=== PATIENT | female | born 1935 | race Caucasian/White ===

== ENCOUNTER → 2016-05-25 | Outpatient (CLI) | payer MEDICARE, OTHER ==
[~2016-05-25] MED LIST: /ATOR40TA PO; /PANT40TA PO; AMOX500C PO; ASPI1TAB PO; CALC600T21 PO; COLA100C PO; EVIS1TAB PO; FLON0.054; LACT20EL PO; LYRI75CA PO; MIRA3350 PO; NAPR500T PO; NEUR300C PO; OXYB10TA PO; PERC5TAB PO; PREV30CA11 PO; TYLE325T5 PO; ULTR50TA PO; VITA-115 PO; VITA-130 PO; ZOLO50TA PO; vit b
--- NOTE | 2016-05-25 17:05 | REP ---
CHEST, TWO VIEWS: Two view of the chest are performed and compared to prior study of 09/24/2013. There is no acute infiltrate or pulmonary edema. The heart is upper limits of normal in size. There is calcified tortuous aorta. The mediastinal silhouette is unchanged. Metallic clips are seen in the right upper quadrant of the abdomen. There are degenerative changes of the spine with an old compression deformity of a lower thoracic vertebral artery. IMPRESSION: No acute pulmonary disease. Signed by Gustavo Reece MD 05/26/2016 05:11 P
== END ==
LOC: M RAD 12:02
PROVIDERS: ATTEND Family Medicine
DX: I82.402 Acute embolism and thrombosis of unspecified deep veins of left lower extremity (principal)

== ENCOUNTER → 2016-12-21 | Outpatient (CLI) | payer MEDICARE, OTHER ==
[~2016-12-21] MED LIST changes: +ATOR1TAB21 PO; -CALC600T21 PO; +CALC600T60 PO; -COLA100C PO; +COLA100C5 PO; +ELIQ5TAB PO; +FLON1SPR; +FURO20TA2 PO; +LACT10SO29 PO; +OXYB5TAB10 PO; +PREV1CAP PO; -PREV30CA11 PO; +RALO1TAB PO; +SERT-138 PO; +ULTR50TA8 PO; -VITA-130 PO; +VITA1CAP40 PO; +VITA500T PO
--- NOTE | 2016-12-21 15:28 | REP ---
Chest two views HISTORY: Hypertension Comparison: 05/25/2016 The lungs are clear. The heart is upper limits of normal in size. The pulmonary vasculature is normal in appearance. There is an old compression fracture of a lower thoracic vertebral body. IMPRESSION: No acute disease. Signed by Ruperto Santana MD 12/21/2016 03:20 P
[2016-12-21 15:42] LABS: ANION GAP 6 MEQ/L (8-16); BLOOD UREA NITROGEN 12 MG/DL (7-18); CALCIUM LEVEL 8.7 MG/DL (8.8-10.2); CARBON DIOXIDE LEVEL 28 MEQ/L (21-32); CHLORIDE LEVEL 109 MEQ/L (98-107); CREATININE FOR GFR 0.84 MG/DL (0.55-1.02); GLOMERULAR FILTRATION RATE > 60.0 (>32); GLUCOSE, FASTING 93 MG/DL (83-110); POTASSIUM SERUM 4.2 MEQ/L (3.5-5.1); SODIUM LEVEL 143 MEQ/L (136-145)
--- NOTE | 2016-12-21 16:55 | ECGEPIP ---
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 Somewhat low voltages with slow precordial R-wave progression and persistent S waves in V5 and V6; body habitus versus pulmonary disease. Rule out prior septal injury. Marginal ST/T-wave abnormalities Slight reduction in voltages from 01/21/16 Electronically Signed On 12-21-2016 16:55:50 EDT by Shola Carias
== END ==
LOC: M LAB 14:45
PROVIDERS: ATTEND Ophthalmology
DX: I10 Essential (primary) hypertension (principal)

== ENCOUNTER → 2017-02-03 | Day surgery (SDC) | payer MEDICARE, OTHER ==
--- NOTE | 2017-01-31 10:31 | CR ---
DATE OF CONSULTATION: 01/03/2017 CONSULTING PHYSICIAN: Dr. Roderick Heller. REQUESTING PHYSICIAN: Dr. Remigio Mistry DO PROPOSED SURGERY: Right cataract extraction to be completed at [facility] on 02/03/2017. CHIEF COMPLAINT: Preoperative evaluation. HISTORY OF PRESENT ILLNESS: Very pleasant 81-year-old who presents today with her daughter for preoperative evaluation. Patient notes overall she has no new symptoms or issues. Chronic issues are generally stable. Patient is on roasterman anticoagulation due to history of recurrent deep venous thrombosis (DVT). She is on Eliquis as well as baby aspirin. She denies any acute chest pain, shortness of breath, any other cardiac issues. She has no history of chronic obstructive pulmonary disease (COPD) or acute respiratory concerns. No history of asthma. She denies snoring or any other symptoms of obstructive sleep apnea (MACK) and she denies having significant problems with anesthesia in the past. She has never smoked. PAST MEDICAL HISTORY: Hyperlipidemia. Chronic kidney disease stage III. Anemia. Osteoporosis. History of recurrent deep venous thrombosis on anticoagulation with Eliquis. Gastroesophageal reflux disease (GERD). Dysthymia (extended grief after her 's passing in 2014). Vitamin D deficiency. Urinary incontinence. PAST SURGICAL HISTORY: Total hysterectomy 1968. Cholecystectomy. Lumbar fusion. Hemorrhoidectomy. ALLERGIES: CODEINE causes a rash, DOXYCYCLINE causes a rash, she felt unwell on DARVOCET N. MEDICATION: - Eliquis 5 mg twice daily - calcium 600 mg three times daily - Nasonex nose spray one spray in each nostril twice daily - Lipitor 20 mg daily - Drisdol 50,000 units weekly - oxybutynin 5 mg twice a day - Lasix 20 mg daily - enteric coated aspirin 81 mg daily - lansoprazole 30 mg twice daily - raloxifene 50 mg daily - stool softener 100 mg tablet once or twice a day as needed - women's multivitamin - sertraline 150 mg daily - meclizine 25 mg every 8 hours as needed for dizziness FAMILY HISTORY: Noncontributory in a patient 81 years old. Her father had lung cancer at a young age and her mother in childbirth. SOCIAL HISTORY: Patient is a . Her Art passed in August 2014. 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 Now lives with one of her children. She has never smoked. Does not take any alcohol. REVIEW OF SYSTEMS: As per history of present illness. Otherwise ten system review is negative. PHYSICAL EXAMINATION: Vital signs: Blood pressure 130/70, height is 4 foot 11, weight is 163 pounds, body mass index (BMI) is 32.9. General: Patient appears to be in baseline health. No acute distress. Nontoxic. Alert and oriented times three. HEENT: Pupils equal, round, and reactive to light and accommodation. Extraocular movements appear intact. Tympanic membranes bilaterally as is external auditory canals are generally benign. Oral cavity, oropharynx benign. Neck is supple. No lymphadenopathy or thyromegaly. Heart: Regular rate and rhythm. S1, S2. Lungs: Clear to auscultation bilaterally. Abdomen: Soft, nontender, nondistended. Lower extremities: No clubbing, cyanosis or edema today. Neurologic exam: Nonfocal. ASSESSMENT AND PLAN: 1. Preoperative evaluation and consultation. Labs from 12/21 show normal BMP. Labs on 12/30 show appropriate cholesterol panel and normal CBC. Overall the patient appears to be optimized for surgical intervention without any major concerns. She will discuss whether she needs to come off her anticoagulation for the surgery and if she does, she will hold the Eliquis for 3 days prior. Aspirin will also be discussed in detail as well if it is necessary. If indeed it is, she does appear to be optimized and will undergo surgery. ASSESSMENT AND PLAN: 1. Patient is optimized for surgical intervention. She has no known significant cardiac issues, pulmonary issues or anesthesia issues. Patient, however, has had recurrent deep venous thrombosis and hence is on Eliquis as discussed. 2. Cataract. Patient looks forward to improved vision. 3. Hyperlipidemia. Patient has done well on present dose of atorvastatin. Will continue. 4. Osteoporosis. Patient is on Relafen. She does have significant back issues to limit her activity level. 5. Anemia resolved on recent labs. Will monitor. 6. Chronic kidney disease stage III, mild and stable, will monitor. 7. Recurrent deep venous thrombosis (DVT) - patient is on Eliquis in addition to the aspirin. Will continue to monitor. On halfway anticoagulants as noted above. We discussed this. 8. Gastroesophageal reflux disease (GERD), good results on PPI, able to wean without significant symptoms. 9. Dysthymia. Patient has extensive depression previously, now doing well on Zoloft. 10. Vitamin D deficiency. Continued on isdol. Continue to monitor. 11. Urinary incontinence, doing well on oxybutynin. She does understand the risk due to her age. ONGOING CARE: I am going to see her again as scheduled. Again if there are any questions regarding any new symptoms or if there are any concerns, I can be called at [phone].
[~2017-02-03] VITALS: Ht 149.9 cm; Wt 73.5 kg
[~2017-02-03] MED LIST changes: +ACETYLCHOLINE OPHTH SOLN 1% 2ML (MIOCHOL-E) As Ordered ONE; +BALANCED SALT IRRIGATION SOLUTION 500ML BAG (FOR OR EYE MACHINE) As Ordered ONE; +CEFUROXIME 1MG/0.1ML INTRACAMERAL INJ As Ordered ONE; +D5W/0.2% SODIUM CHLORIDE 250 ML IV ONE; +DUOVISC (0.50ML VISCOAT/0.55ML PROVISC) OPHTH KIT As Ordered ONE; +LIDOCAINE 0.75%/EPINEPHRINE 0.025% IN BSS 1ML SYR INTRACAMERAL (OR ONLY) As Ordered ONE; +MIDAZOLAM INJ 2 MG/2 ML VIAL (J2250) As Ordered ONE; +OFLOXACIN 0.3 % (OCUFLOX) OPTH SOL 5ML OD ONE; +ONDANSETRON 4MG/2ML VIAL (J2405) As Ordered ONE; +PHENYLEPHRINE 2.5% OPHTH SOL 2ML OD ONE; +POVIDONE-IODINE 5% OPHTH PREP SOL 30ML As Ordered ONE; +PROPARACAINE 0.5% OPHTH SOL 15ML OD ONE; +TROPICAMIDE 1% OPHTH SOLN 2ML OD ONE; +fentaNYL 100 MCG/2 ML INJECTION (J3010) As Ordered ONE
[2017-02-03 11:30] VITALS: BP 133/68
--- NOTE | 2017-02-03 19:38 | RO ---
DATE OF PROCEDURE: 02/03/2017 PREOPERATIVE DIAGNOSIS: Visually significant nuclear sclerotic cataract right eye. POSTOPERATIVE DIAGNOSIS: Visually significant nuclear sclerotic cataract right eye. PROCEDURE: Cataract extraction with use of phacoemulsification, and placement of intraocular lens, AU00T0 19.0D , right eye. SURGEON: Remigio Mistry DO LOADING MANAGER: ANESTHESIA: Local with monitored anesthesia care (MAC). COMPLICATIONS: None. POSTOPERATIVE CONDITION: Stable. INDICATION FOR SURGERY: Blurred vision right eye affecting patient's activities of daily living. DESCRIPTION OF PROCEDURE: The patient was seen in the preoperative area and properly identified. The correct operative eye was identified and marked. Attention was turned to that eye. The patient received topical antibiotics in the preoperative area. The patient then received topical dilating drops consisting of Tropicamide and Phenylephrine. The patient was then transferred to the operating room. The correct side was re-identified. The patient received topical anesthetics and antibiotics on the surface of the eye. The eye was prepped and draped in a sterile fashion. The upper and lower eyelids were isolated with Tegaderm tape, and the lids were held open with an adjustable speculum. Using a sideport blade, a paracentesis incision was made. Intraocular preservative-free lidocaine was then injected into the anterior chamber. Viscoelastic was then injected into the anterior chamber through the paracentesis. Using a 2.4 mm sharp-tipped keratome, the anterior chamber was entered via a temporal clear corneal incision. A continuous curvilinear capsulorrhexis was created with the aid of a 26g cystotome and utrata forceps. Hydrodissection was performed with balanced salt solution (BSS) on a blunt cannula until the nucleus was freely mobile. The crystalline lens was phacoemulsified and aspirated. Additional cohesive viscoelastic was placed into the capsular bag to deepen it. An AU00T0 19.0 lens D was placed into the capsular bag and confirmed by visualizing the continuous curvilinear capsulorrhexis. Additional irrigation and aspiration was used to remove cortical material and remaining viscoelastic. The clear corneal incision was hydrated with BSS on a blunt cannula. The lens was well positioned. The incisions were then tested for leaks and found to be negative. The eye was then palpated for appropriate pressure and adjusted accordingly with BSS. The eyelid speculum was carefully removed. A shield was placed. The patient tolerated the procedure well and was discharged to the recovery unit in a stable condition. MTDD
== END | disposition home or self-care (01) ==
LOC: M SDC 08:53
PROVIDERS: ATTEND Ophthalmology
DX: H25.11 Age-related nuclear cataract, right eye (principal); E78.5 Hyperlipidemia, unspecified; K21.9 Gastro-esophageal reflux disease without esophagitis; F41.9 Anxiety disorder, unspecified; Z79.82 Long term (current) use of aspirin; Z79.02 Long term (current) use of antithrombotics/antiplatelets; Z79.899 Other long term (current) drug therapy
CPT/HCPCS: 66984; J2250; J2405; J3010; V2632

== ENCOUNTER 2017-02-17 10:02 | Day surgery (SDC) | payer MEDICARE, OTHER ==
[~2017-02-17 10:02] MED LIST changes: -D5W/0.2% SODIUM CHLORIDE 250 ML IV ONE; +LR 500 ML IV ONE; -OFLOXACIN 0.3 % (OCUFLOX) OPTH SOL 5ML OD ONE; +OFLOXACIN 0.3 % (OCUFLOX) OPTH SOL 5ML OS ONE; -ONDANSETRON 4MG/2ML VIAL (J2405) As Ordered ONE; -PHENYLEPHRINE 2.5% OPHTH SOL 2ML OD ONE; +PHENYLEPHRINE 2.5% OPHTH SOL 2ML OS ONE; -PROPARACAINE 0.5% OPHTH SOL 15ML OD ONE; +PROPARACAINE 0.5% OPHTH SOL 15ML OS ONE; -TROPICAMIDE 1% OPHTH SOLN 2ML OD ONE; +TROPICAMIDE 1% OPHTH SOLN 2ML OS ONE
[2017-02-17 13:00] VITALS: BP 150/75
--- NOTE | 2017-02-17 15:38 | RO ---
DATE OF SURGERY: 02/17/2017 PREOPERATIVE DIAGNOSIS: Visually significant nuclear sclerotic cataract, left eye. POSTOPERATIVE DIAGNOSIS: Visually significant nuclear sclerotic cataract, left eye. PROCEDURE: Extracapsular cataract removal with insertion of intraocular lens implant, left eye, AU00T0 20.0, left eye, for near vision, SURGEON: Remigio Mistry DO SOLAR SALES MANAGER: ANESTHESIA: Local with monitored anesthesia care (MAC). COMPLICATIONS: None. POSTOPERATIVE CONDITION: Stable. INDICATION FOR SURGERY: Blurred vision, right eye, affecting patient's activities of daily living. DESCRIPTION OF PROCEDURE: The patient was seen in the preoperative area and properly identified. The correct operative eye was identified and marked. Attention was turned to that eye. The patient received topical antibiotics in the preoperative area. The patient then received topical dilating drops consisting of Tropicamide and Phenylephrine. The patient was then transferred to the operating room. The correct side was re-identified. The patient received topical anesthetics and antibiotics on the surface of the eye. The eye was prepped and draped in a sterile fashion. The upper and lower eyelids were isolated with Tegaderm tape, and the lids were held open with an adjustable speculum. Using a sideport blade, a paracentesis incision was made. Intraocular preservative-free lidocaine was then injected into the anterior chamber. Viscoelastic was then injected into the anterior chamber through the paracentesis. Using a 2.4 mm sharp-tipped keratome, the anterior chamber was entered via a temporal clear corneal incision. A continuous curvilinear capsulorrhexis was created with the aid of a 26g cystotome and Utrata forceps. Hydrodissection was performed with balanced salt solution (BSS) on a blunt cannula until the nucleus was freely mobile. The crystalline lens was phacoemulsified and aspirated. Additional cohesive viscoelastic was placed into the capsular bag to deepen it. AU00T0, 20.0 lens D was placed into the capsular bag and confirmed by visualizing the continuous curvilinear capsulorrhexis. Additional irrigation and aspiration was used to remove cortical material and remaining viscoelastic. The clear corneal incision was hydrated with BSS on a blunt cannula. The lens was well positioned. The incisions were then tested for leaks and found to be negative. The eye was then palpated for appropriate pressure and adjusted accordingly with BSS. The eyelid speculum was carefully removed. A shield was placed. The patient tolerated the procedure well and was discharged to the recovery unit in a stable condition. SUGAR
== END 2017-02-17 13:10 | disposition home or self-care (01) ==
LOC: M SDC 10:02
PROVIDERS: ATTEND Ophthalmology
DX: H25.12 Age-related nuclear cataract, left eye (principal); E78.5 Hyperlipidemia, unspecified; K21.9 Gastro-esophageal reflux disease without esophagitis; F41.9 Anxiety disorder, unspecified; Z88.8 Allergy status to other drugs, medicaments and biological substances; Z79.899 Other long term (current) drug therapy
CPT/HCPCS: 66984; J2250; J3010; V2632

== ENCOUNTER 2019-12-09 17:38 | Emergency (ER) | payer MEDICARE, OTHER ==
[~2019-12-09] VITALS: Ht 149.9 cm; Wt 71.1 kg
[~2019-12-09 17:38] MED LIST changes: -/ATOR40TA PO; -/PANT40TA PO; -ACETYLCHOLINE OPHTH SOLN 1% 2ML (MIOCHOL-E) As Ordered ONE; -ASPI1TAB PO; +ASPI81TA26 PO; -BALANCED SALT IRRIGATION SOLUTION 500ML BAG (FOR OR EYE MACHINE) As Ordered ONE; -CEFUROXIME 1MG/0.1ML INTRACAMERAL INJ As Ordered ONE; -DUOVISC (0.50ML VISCOAT/0.55ML PROVISC) OPHTH KIT As Ordered ONE; -LACT10SO29 PO; +LACT15SO PO; -LIDOCAINE 0.75%/EPINEPHRINE 0.025% IN BSS 1ML SYR INTRACAMERAL (OR ONLY) As Ordered ONE; +LIPI1TAB2 PO; -LR 500 ML IV ONE; -MIDAZOLAM INJ 2 MG/2 ML VIAL (J2250) As Ordered ONE; -OFLOXACIN 0.3 % (OCUFLOX) OPTH SOL 5ML OS ONE; -OXYB10TA PO; +OXYB10TA23 PO; -PHENYLEPHRINE 2.5% OPHTH SOL 2ML OS ONE; -POVIDONE-IODINE 5% OPHTH PREP SOL 30ML As Ordered ONE; -PROPARACAINE 0.5% OPHTH SOL 15ML OS ONE; +PROT1TAB2 PO; -TROPICAMIDE 1% OPHTH SOLN 2ML OS ONE; +VITA-243 PO; -VITA1CAP40 PO; +VITA50005 PO; -VITA500T PO; -fentaNYL 100 MCG/2 ML INJECTION (J3010) As Ordered ONE
[2019-12-09] MEDS ORDERED: VITA50005 PO (17:56)
--- NOTE | 2019-12-09 18:23 | REPVR ---
PROCEDURE INFORMATION: Exam: CT Head Without Contrast Exam date and time: 12/09/2019 5:46 PM Age: 84 years old Clinical indication: Injury or trauma; Fall; Initial encounter; Blunt trauma (contusions or hematomas); Consciousness not specified; Additional info: Head injury on eliquis TECHNIQUE: Imaging protocol: Computed tomography of the head without contrast. Radiation optimization: All CT scans at this facility use at least one of these dose optimization techniques: automated exposure control; mA and/or kV adjustment per patient size (includes targeted exams where dose is matched to clinical indication); or iterative reconstruction. COMPARISON: CT Head without contrast 01/21/2016 7:43 PM FINDINGS: Brain: There is no acute cortical infarction, intracranial hemorrhage or mass. There is a small focal low density in the left sub cortical white matter left frontal lobe which is stable in comparison to the prior study.There is mild diffuse heterogeneity of the white matter, most consistent with microangiopathy. Ventricles: Mild, stable ventriculomegaly. Bones/joints: Unremarkable. No acute fracture. Sinuses: There is no significant mucoperiosteal thickening or air-fluid levels in the paranasal sinuses. Mastoid air cells: The middle ear cavities and mastoid air cells are clear. Vasculature: Atherosclerosis. Soft tissues: Unremarkable. IMPRESSION: No acute intracranial findings. Electronically signed by: Karine Etienne On 12/09/2019 18:22:50 PM
--- NOTE | 2019-12-09 18:29 | REPVR ---
PROCEDURE INFORMATION: Exam: CT Cervical Spine Without Contrast Exam date and time: 12/09/2019 5:46 PM Age: 84 years old Clinical indication: Injury or trauma; Fall; Initial encounter; Blunt trauma; Additional info: Head injury on eliquis TECHNIQUE: Imaging protocol: Computed tomography images of the cervical spine without contrast. Radiation optimization: All CT scans at this facility use at least one of these dose optimization techniques: automated exposure control; mA and/or kV adjustment per patient size (includes targeted exams where dose is matched to clinical indication); or iterative reconstruction. COMPARISON: No relevant prior studies available. FINDINGS: Vertebrae: There is minimal anterior spondylolisthesis of C3 on C4. Disc space narrowing and endplate degeneration at seen at C4-C5, C5-C6 and C6-C7 levels. There is mild reversal the normal cervical lordosis at C5-C6. Diffuse degeneration of the uncovertebral and facet joints. C2-C3: No significant spinal canal stenosis or neural foraminal narrowing. C3-C4: No spinal canal stenosis. Mild narrowing of the left neural foramen. C4-C5: No significant spinal canal stenosis or neural foraminal narrowing. C5-C6: No significant spinal canal stenosis or neural foraminal narrowing. C6-C7: No significant spinal canal stenosis or neural foraminal narrowing. C7-T1: No significant spinal canal stenosis or neural foraminal narrowing. Soft tissues: No prevertebral soft tissue swelling. Lungs: Lung apices are unremarkable. IMPRESSION: No acute fracture or dislocation in the cervical spine. Electronically signed by: Karine Etienne On 12/09/2019 18:28:39 PM
[2019-12-09 19:12] VITALS: BP 145/89
== END 2019-12-09 19:13 | disposition home or self-care (01) ==
LOC: M ED 17:38
DX: S01.01XA Laceration without foreign body of scalp, initial encounter (principal); W01.10XA Fall on same level from slipping, tripping and stumbling with subsequent striking against unspecified object, initial encounter; Y92.099 Unspecified place in other non-institutional residence as the place of occurrence of the external cause; Y93.9 Activity, unspecified; Y99.9 Unspecified external cause status; I11.9 Hypertensive heart disease without heart failure; Z79.01 Long term (current) use of anticoagulants; Z79.82 Long term (current) use of aspirin; Z79.899 Other long term (current) drug therapy; Z88.5 Allergy status to narcotic agent; Z88.8 Allergy status to other drugs, medicaments and biological substances

== ENCOUNTER 2020-03-20 22:12 | Inpatient (IN) | payer MEDICARE, OTHER ==
[~2020-03-20] VITALS: Ht 149.9 cm; Wt 72.9 kg
[2020-03-20] MEDS ORDERED: ONDANSETRON 4MG/2ML VIAL IV ONE (23:00)
[2020-03-20] MEDS ORDERED: MORPHINE 2 MG/ML 1ML VIAL (J2270) IV PRN (23:00)
[2020-03-20 23:35] LABS: BASO % 0.3 % (0.0-1.0); EOS # 0.2 10^3/uL (0.0-0.5); EOS % 1.8 % (0.0-3.0); HEMATOCRIT 37.2 % (36.0-47.0); HEMOGLOBIN 11.7 g/dl (12.0-15.5); LYMPH # 2.9 10^3/uL (1.5-5.0); LYMPH % 28.7 % (24.0-44.0); MEAN CORPUSCULAR HEMOGLOBIN 31.7 pg (27.0-33.0); MEAN CORPUSCULAR HGB CONC 31.5 g/dl (32.0-36.5); MEAN CORPUSCULAR VOLUME 100.8 fl (80.0-96.0); MONO # 0.7 10^3/uL (0.0-0.8); MONO % 6.8 % (0.0-5.0); NEUTROPHILS # 6.4 10^3/uL (1.5-8.5); NEUTROPHILS % 62.1 % (36.0-66.0); PLATELET COUNT, AUTOMATED 173 10^3/uL (150-450); RED BLOOD COUNT 3.69 10^6/uL (4.00-5.40); WHITE BLOOD COUNT 10.2 10^3/uL (4.0-10.0)
[2020-03-20 23:47] LABS: ALBUMIN 2.9 GM/DL (3.2-5.2); ALT/SGPT 27 U/L (12-78); BILIRUBIN,DIRECT 0.2 MG/DL (0.0-0.2); BILIRUBIN,TOTAL 0.4 MG/DL (0.2-1.0); BLOOD UREA NITROGEN 13 MG/DL (7-18); CALCIUM LEVEL 8.2 MG/DL (8.8-10.2); CARBON DIOXIDE LEVEL 27 MEQ/L (21-32); CHLORIDE LEVEL 111 MEQ/L (98-107); GLOMERULAR FILTRATION RATE > 60.0 (>32); GLUCOSE, FASTING 100 MG/DL (70-100); LIPASE 61 U/L (73-393); SODIUM LEVEL 143 MEQ/L (136-145); TOTAL PROTEIN 7.9 GM/DL (6.4-8.2)
--- NOTE | 2020-03-21 00:43 | REPVR ---
PROCEDURE INFORMATION: Exam: CT Abdomen And Pelvis Without Contrast Exam date and time: 03/20/2020 11:55 PM Age: 84 years old Clinical indication: Abdominal pain; Localized; Left lower quadrant (llq); Additional info: Llq pain R/O diverticulitis TECHNIQUE: Imaging protocol: Computed tomography of the abdomen and pelvis without contrast. Radiation optimization: All CT scans at this facility use at least one of these dose optimization techniques: automated exposure control; mA and/or kV adjustment per patient size (includes targeted exams where dose is matched to clinical indication); or iterative reconstruction. COMPARISON: CT Pelvis without contrast 08/17/2013 11:05 PM FINDINGS: Lungs: Coarse bibasilar pulmonary interstitium with minimal bullous change and minimal scattered scar. Liver: Slightly nodular surface of the liver. Gallbladder and bile ducts: Status post cholecystectomy. Pancreas: Normal. No ductal dilation. Spleen: Normal. No splenomegaly. Adrenal glands: Normal. No mass. Kidneys and ureters: No renal calculi. Stomach and bowel: Surgical clips about the GE junction. Mild stool throughout much of the colon. Mildly redundant sigmoid with no significant diverticulosis and no diverticulitis. Appendix: A normal appendix is seen. Intraperitoneal space: Unremarkable. No free air. No significant fluid collection. Vasculature: There is moderate atherosclerotic calcification of the abdominal aorta with extension into the iliac arteries. Lymph nodes: Unremarkable. No enlarged lymph nodes. Urinary bladder: Upper normal filling of the urinary bladder. Reproductive: Status post hysterectomy. Bones/joints: Moderate wedge configuration of T10 and slight wedge configuration of T11 which appear to be chronic. There are degenerative changes of the lumbar spine with facet arthropathy. Soft tissues: Unremarkable. IMPRESSION: 1. There has been prior cholecystectomy and hysterectomy. 2. Prior surgery about the GE junction. 3. Suggestion of hepatic cirrhosis. 4. Otherwise negative CT abdomen/pelvis. No colonic diverticulosis or diverticulitis. Electronically signed by: Thee Tam On 03/21/2020 00:43:46 AM
[2020-03-21] MEDS ORDERED: MOM 30ML SUSPENSION UDC PO PRN (03:30)
[2020-03-21] MEDS ORDERED: MAALOX 30 ML SUSP *UDC PO PRN (03:30)
[2020-03-21] MEDS ORDERED: ACETAMINOPHEN TAB 650MG DOSE (2X325MG) PO PRN (03:30)
[2020-03-21] MEDS ORDERED: VITA50005 PO (03:48)
[2020-03-21] MEDS ORDERED: FURO20TA2 PO (03:48)
[2020-03-21] MEDS ORDERED: FLON1SPR (03:48)
[2020-03-21] MEDS ORDERED: RALO1TAB PO (03:48)
[2020-03-21] MEDS ORDERED: SERT-138 PO (03:48)
[2020-03-21 04:13] VITALS: BP 114/63
--- NOTE | 2020-03-21 05:03 | HPEPDOC ---
[facility] Medical History & Physical Date of Admission Mar 21, 2020 Date of Service: Mar 21, 2020 Primary Care Physician: Venkata Herron RPA-C Attending Physician: GARCIA ROBLEDO MD History and Physical TIME OF SERVICE: 420am CHIEF COMPLAINT: back pain HISTORY OF PRESENT ILLNESS: This 84 yr old F presented w c/o of 3 day in duration 10/30 in severity back pain that radiated to her lower abdomen. She denied falling but reports having difficulties walking because of the pain, and denies having fevers. Per she was noted to have urinary retention while in the ER. She came to the hospital today because he children insisted that she come in for evaluation. REVIEW OF SYSTEMS: negative except as listed in HPI PAST MEDICAL/ SURGICAL HISTORY: Chronic back pain / lumbar DJD w spinal stenosis / L3-L4 laminectomy w right sided fusion of L3-L5 DLP Chronic HTN Remote hx of Gout DVT on apixaban Osteopenia Vitamin D def Depression GERD Allergic rhinitis Chronic stress incontinence Chronic constipation Newly diagnosed liver cirrhosis Class 1 obesity Hx of ear surgery /hearing loss Tonsillectomy Hernia repair Partial hysterectomy Cholecystectomy D&C Skin graft surgery x 2 after sustaining heart Hemorrhoid surgery SOCIAL HISTORY: she doesn't smoke and lives alone 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 HOME MEDICATIONS: Please see below. PHYSICAL EXAMINATION: Vital Signs Date Time Temp Pulse Resp B/P (MAP) Pulse Ox O2 Delivery O2 Flow Rate FiO2 03/20/20 22:12 99.4 87 16 136/63 (87) 96 Room Air GEN: well-nourished / well developed/ NAD INTEGUMENT: not flushed/ not jaundice CVS: RRR/NMRG/ radial and dorsalis pedis pulses intact / no lower extremity edema LUNGS: lungs are clear to auscultation bilaterally on room air ABDOMEN: Contour ( obese) / soft & not tender with palpation MSK/EXTREMITIES: NCAT / she is unable to sit up with out assistance because of her back pain NEURO: CN 2-12 are grossly intact / speech is not dysarthric / both legs are weak she has difficulties holding them up against resistance PSYCH: alert and oriented to person place and time/ able to understand and follow all commands LABORATORY DATA: 03/20/20 23:10 03/20/20 23:10: Immature Granulocyte % (Auto) 0.3, Neutrophils (%) (Auto) 62.1, Lymphocytes (%) (Auto) 28.7, Monocytes (%) (Auto) 6.8H, Eosinophils (%) (Auto) 1.8, Basophils (%) (Auto) 0.3, Neutrophils # (Auto) 6.4, Lymphocytes # (Auto) 2.9, Monocytes # (Auto) 0.7, Eosinophils # (Auto) 0.2, Basophils # (Auto) 0.0, Nucleated Red Blood Cells % (auto) 0.0, Anion Gap 5L, Glomerular Filtration Rate > 60.0, Lactic Acid Level 1.3, Calcium Level 8.2L, Total Bilirubin 0.4, Direct Bilirubin 0.2, Aspartate Amino Transf (AST/SGOT) 57H, Alanine Aminotransferase (ALT/SGPT) 27, Alkaline Phosphatase 123H, Total Protein 7.9, Albumin 2.9L, Albumin/Globulin Ratio 0.6L, Lipase 61L 03/21/20 01:40: Urine Color YELLOW, Urine Appearance CLEAR, Urine pH 6.0, Urine Specific [place] 1.016, Urine Protein NEGATIVE, Urine Glucose (UA) NEGATIVE, Urine Ketones NEGATIVE, Urine Blood NEGATIVE, Urine Nitrite NEGATIVE, Urine Bilirubin NEGATIVE, Urine Urobilinogen 4.0H, Urine Leukocyte Esterase NEGATIVE, Urine WBC (Auto) 0, Urine RBC (Auto) 5H, Urine Hyaline Casts (Auto) 0, Urine Bacteria ( Auto) NEGATIVE, Urine Squamous Epithelial Cells 0, Urine Sperm (Auto) IMAGING: CT abd/pelvis "IMPRESSION: 1. There has been prior cholecystectomy and hysterectomy. 2. Prior surgery about the GE junction. 3. Suggestion of hepatic cirrhosis. 4. Otherwise negative CT abdomen/pelvis. No colonic diverticulosis or diverticulitis." ASSESSMENT: is an 84 yr old w a hx of lumbar DJD w spinal stenosis, hx of L3-L4 laminectomy w right sided fusion of L3-L5, HTN , Osteopenia, Depression & GERD who presented w c/o back pain that makes it difficult for her to walk; she will be admitted for management of back pain, pending PT eval. PLAN: 1. Acute on chronic back pain She a hx of lumbar DJD w spinal stenosis & L3-L4 laminectomy w right sided fusion of L3-L5 CT of the abdomen didn't identify any acute lumbar spine pathology Plan: admit to medical floor / start scheduled acetaminophen w Flector patches 2. Unsteady Gait Plan: PT consult 3. Newly diagnosed liver cirrhosis Suspect this is 2/2 fatty liver Plan: she can f/u with her PCP to receive Hep A & B vaccines if not already g iven 4. hx of DVT Plan: apixaban 5. Vitamin D def / Osteopenia Plan: Ca w vit D 6. DLP Plan: atorvastatin 7. Chronic HTN Plan: Lasix 8. Depression Plan:sertraline 9. GERD Plan: omeprazole 10. Chronic constipation Plan: docusate 11. Class 1 obesity complicates care Plan: f/u with PCP for DM and MACK screening DVT PROPHYLAXIS: n/a she is on a NOAC DISPOSITION: home after less than 2 midnight's stay Home Medications Scheduled Apixaban (Eliquis) 5 Mg Tab, 5 MG PO BID Ascorbic Acid (Vitamin C) 500 Mg Tab, 500 MG PO DAILY Aspirin (Aspirin EC) 81 Mg Tab, 81 MG PO DAILY Atorvastatin Calcium (Atorvastatin Calcium) 20 Mg Tab, 20 MG PO DAILY Calcium Carbonate (Calcium) 600 Mg Tab, 600 MG PO WM Docusate Sodium (Colace) 100 Mg Cap, 100 MG PO DAILY Ergocalciferol (Vitamin D2) (Vitamin D2) 50,000 Units Cap, 50,000 UNITS PO 1XWK UNSURE OF EXACT DAY BUT PATIENT STATES SHE TAKES IT IN THE MIDDLE OF THE WEEK Fluticasone Propionate (Flonase Allergy Relief) 9.9 Ml [place].susp, 1 SPRAY NA BID Furosemide (Furosemide) 20 Mg Tablet, 20 MG PO DAILY Lansoprazole (Prevacid) 30 Mg Cap, 30 MG PO BID Oxybutynin Chloride (Oxybutynin Chloride) 5 Mg Tab, 5 MG PO BID Raloxifene HCl (Raloxifene HCl) 60 Mg Tablet, 60 MG PO DAILY Sertraline HCl (Sertraline HCl) 100 Mg Tablet, 150 MG PO DAILY Allergies Coded Allergies: codeine (Verified Adverse Reaction, Unknown, itching, 12/09/19) propoxyphene (Verified Adverse Reaction, Unknown, N/V, 12/09/19) A-FIB/CHADSVASC A-FIB History Current/History of A-Fib/PAF?: No Current PO Anticoag Therapy: No LWANGA,GARCIA MD Mar 21, 2020 05:03
[2020-03-21 06:00] VITALS: BP 116/68
[2020-03-21] MEDS: ACETAMINOPHEN 650MG ER TAB (TYLENOL ARTHRITIS) PO SCH ×3 (06:14→21:33)
[2020-03-21] MEDS: ASPIRIN 81 MG ENTERIC TAB PO SCH (09:32)
[2020-03-21] MEDS: FLUTICASONE PROP 0.05% NASAL SPRAY 16 GM (FLONASE) SCH ×2 (09:32→21:34)
[2020-03-21] MEDS: DICLOFENAC EPOLAMINE 1.3 % PATCH TOP SCH ×2 (09:32→21:33)
[2020-03-21] MEDS: FUROSEMIDE 20 MG TAB PO SCH (09:33)
[2020-03-21] MEDS: OMEPRAZOLE 20 MG CAP PO SCH ×2 (09:33→21:33)
[2020-03-21] MEDS: ATORVASTATIN 20 MG TAB PO SCH (09:33)
[2020-03-21] MEDS: CALCIUM/VITAMIN D 500 MG TAB PO SCH (09:33)
[2020-03-21] MEDS: oxyBUTYnin 5 MG TAB PO SCH ×2 (09:33→21:33)
[2020-03-21] MEDS: DOCUSATE SODIUM 100 MG CAP PO SCH (09:33)
[2020-03-21] MEDS: SERTRALINE HCL 50 MG TAB PO SCH (09:33)
[2020-03-21] MEDS: APIXABAN 5 MG TAB (ELIQUIS) PO SCH ×2 (09:33→21:33)
--- NOTE | 2020-03-21 10:29 | REP ---
INDICATION: lower back pain. COMPARISON: Comparison lumbar spine radiographs are from August 09, 2014.. TECHNIQUE: Five views. FINDINGS: There are surgical clips in right upper quadrant. Vascular calcification is noted in the normal caliber aorta. Bowel gas pattern is unremarkable. Lumbar vertebral body heights are preserved. Alignment is normal. There is no evidence of such foy allow listhesis or spondylolisthesis. There is degenerative disc disease diffusely in the lumbar spine and osteoarthritic facet changes are noted at L4-5 and L5-S1 bilaterally. Sacrum and SI joints are intact. Degenerative spondylosis changes are felt to be essentially unchanged when compared with the August 09, 2014 study. No fracture or collapse is seen. No bony destructive lesion is seen. IMPRESSION: Degenerative spondylosis changes stable radiographically from 2015. No acute abnormality. <Electronically signed by Rolan Byers > 03/21/20 [id number]
[2020-03-21 14:00] VITALS: BP 120/59
[2020-03-21 22:00] VITALS: BP 134/60
[2020-03-22 06:00] VITALS: BP 135/60
[2020-03-22 06:25] LABS: HEMATOCRIT 34.2 % (36.0-47.0); HEMOGLOBIN 10.7 g/dl (12.0-15.5); MEAN CORPUSCULAR HEMOGLOBIN 31.6 pg (27.0-33.0); MEAN CORPUSCULAR HGB CONC 31.3 g/dl (32.0-36.5); MEAN CORPUSCULAR VOLUME 100.9 fl (80.0-96.0); PLATELET COUNT, AUTOMATED 143 10^3/uL (150-450); RED BLOOD COUNT 3.39 10^6/uL (4.00-5.40); WHITE BLOOD COUNT 8.7 10^3/uL (4.0-10.0)
[2020-03-22] MEDS: ACETAMINOPHEN 650MG ER TAB (TYLENOL ARTHRITIS) PO SCH ×3 (06:26→21:46)
[2020-03-22 06:32] LABS: BLOOD UREA NITROGEN 13 MG/DL (7-18); CALCIUM LEVEL 8.4 MG/DL (8.8-10.2); CARBON DIOXIDE LEVEL 28 MEQ/L (21-32); CHLORIDE LEVEL 111 MEQ/L (98-107); CREATININE FOR GFR 0.67 MG/DL (0.55-1.30); GLOMERULAR FILTRATION RATE > 60.0 (>32); GLUCOSE, FASTING 108 MG/DL (70-100); POTASSIUM SERUM 4.1 MEQ/L (3.5-5.1); SODIUM LEVEL 143 MEQ/L (136-145)
--- NOTE | 2020-03-22 08:23 | IPNPDOC ---
Text Note Date of Service The patient was seen on 03/22/20. NOTE Subjective: Patient seen and examined at bedside. No acute overnight events reported. Patient has no new medical complaints this morning. Feels her back pain has improved. Objective: General: NAD, lying comfortably in bed eating breakfast, elderly HEENT: NC/AT, EOMI Lungs: CTA B/L Heart: +S1S2, RRR Abd: soft, NT, +BS Ext: trace edema Psych: AAOx3 A/P: 84 yo female with PMHx lumbar DJD w spinal stenosis/L3-L4 laminectomy w right sided fusion of L3-L5, HTN, osteopenia, GERD, depression, presents for acute/chronic lower back pain with gait dysfunction, abdominal pain. #Acute on chronic back pain - hx of lumbar DJD w spinal stenosis & L3-L4 laminectomy w right sided fusion of L3-L5 - no acute finding on imaging - ortho c/s appreciated #Unsteady Gait - follow as per PT # Newly diagnosed liver cirrhosis - liver US pending, hepatitis panel unremarkable - LFT's WNL #hx of DVT - continue apixaban #Vitamin D def / Osteopenia - continue oral supplementation #DLP - atorvastatin #Chronic HTN # Depression - sertraline #GERD - omeprazole #Chronic constipation - docusate # obesity - complicates care #DVT PROPHYLAXIS - as above, receiving DOAC VS,Fishbone, I+O VS, Fishbone, I+O Laboratory Tests 03/22/20 05:53 Vital Signs Date Time Temp Pulse Resp B/P (MAP) Pulse Ox O2 Delivery O2 Flow Rate FiO2 03/22/20 06:00 96.1 75 18 135/60 (85) 95 Room Air I&O- Last 24 Hours up to 6 AM 03/22/20 06:00 Intake Total 900 ml Output Total 1425 ml Balance -525 ml JOÃO ZAVALA MD Mar 22, 2020 08:23
[2020-03-22] MEDS ORDERED: FLUBLOK(EGG FREE)(QUAD)INFLUENZA VACC 0.5ML SYRINGE 18YRS & OLDER IM ONE (09:00)
[2020-03-22] MEDS: DICLOFENAC EPOLAMINE 1.3 % PATCH TOP SCH ×2 (09:01→21:47)
[2020-03-22] MEDS: FLUTICASONE PROP 0.05% NASAL SPRAY 16 GM (FLONASE) SCH ×2 (09:01→21:46)
[2020-03-22] MEDS: ASPIRIN 81 MG ENTERIC TAB PO SCH (09:01)
[2020-03-22] MEDS: DOCUSATE SODIUM 100 MG CAP PO SCH (09:01)
[2020-03-22] MEDS: oxyBUTYnin 5 MG TAB PO SCH ×2 (09:01→21:46)
[2020-03-22] MEDS: CALCIUM/VITAMIN D 500 MG TAB PO SCH (09:01)
[2020-03-22] MEDS: SERTRALINE HCL 50 MG TAB PO SCH (09:02)
[2020-03-22] MEDS: APIXABAN 5 MG TAB (ELIQUIS) PO SCH ×2 (09:02→21:46)
[2020-03-22] MEDS: ATORVASTATIN 20 MG TAB PO SCH (09:02)
[2020-03-22] MEDS: FUROSEMIDE 20 MG TAB PO SCH (09:02)
[2020-03-22] MEDS: RALOXIFENE 60MG TABLET (PATIENT'S OWN MED) PO SCH (09:02)
[2020-03-22] MEDS: OMEPRAZOLE 20 MG CAP PO SCH ×2 (09:02→21:46)
[2020-03-22 14:00] VITALS: BP 129/58
--- NOTE | 2020-03-22 16:20 | REP ---
INDICATION: further eval liver cirrhosis. COMPARISON: Comparison CT study March 21, 2020. Comparison right upper quadrant sonography January 21, 2020.. TECHNIQUE: Transabdominal right upper quadrant sonography. FINDINGS: Gallbladder surgically absent. Scan quality is inhibited somewhat by patient body habitus. Liver parenchyma is appears slightly coarse. There is no evidence of ascites. No focal liver lesion is seen. Limited views of the pancreas show no abnormality. There is no evidence of right renal abnormality. The right kidney measures 10.5 x 3.3 x 4.4 cm. Common bile duct is normal measuring 0.6 cm in greatest diameter.. IMPRESSION: Scan quality somewhat inhibited. Slightly coarse liver texture. No focal liver lesion. Post cholecystectomy. Normal CBD.. <Electronically signed by Rolan Byers > 03/22/20 0040
[2020-03-22 22:00] VITALS: BP 112/52
[2020-03-23] MEDS: ACETAMINOPHEN 650MG ER TAB (TYLENOL ARTHRITIS) PO SCH ×3 (05:21→22:18)
[2020-03-23 06:00] VITALS: BP 118/53
[2020-03-23] MEDS: RALOXIFENE 60MG TABLET (PATIENT'S OWN MED) PO SCH (10:14)
[2020-03-23] MEDS: FLUTICASONE PROP 0.05% NASAL SPRAY 16 GM (FLONASE) SCH ×2 (10:14→20:53)
[2020-03-23] MEDS: DICLOFENAC EPOLAMINE 1.3 % PATCH TOP SCH ×2 (10:14→20:52)
[2020-03-23] MEDS: OMEPRAZOLE 20 MG CAP PO SCH ×2 (10:15→20:52)
[2020-03-23] MEDS: ATORVASTATIN 20 MG TAB PO SCH (10:15)
[2020-03-23] MEDS: CALCIUM/VITAMIN D 500 MG TAB PO SCH (10:15)
[2020-03-23] MEDS: SERTRALINE HCL 50 MG TAB PO SCH (10:15)
[2020-03-23] MEDS: ASPIRIN 81 MG ENTERIC TAB PO SCH (10:15)
[2020-03-23] MEDS: FUROSEMIDE 20 MG TAB PO SCH (10:16)
[2020-03-23] MEDS: DOCUSATE SODIUM 100 MG CAP PO SCH (10:16)
[2020-03-23] MEDS: APIXABAN 5 MG TAB (ELIQUIS) PO SCH ×2 (10:16→20:52)
[2020-03-23 14:00] VITALS: BP 117/54
--- NOTE | 2020-03-23 18:51 | IPNPDOC ---
Subjective Date Seen The patient was seen on 03/23/20. Subjective Chief Complaint/HPI Mrs. Chang is an 84 year old female with worsening low back pain. Imaging did not demonstrate any acute findings. Today, pain has improved. Patient denies any fever/chills, chest pain, or dyspnea. She has urinary retention. Patient is on oxybutynin. Will discontinue oxybutynin. Spoke with daughter about plan. If patient is unable to urinate spontaneously by tomorrow, she may need to go home with henry and Urology follow up. Objective Physical Examination General Exam: Positive: Alert, Cooperative, No Acute Distress Eye Exam: Positive: EOMI; Negative: Sclera icteric ENT Exam: Positive: Atraumatic Neck Exam: Positive: Supple Chest Exam: Positive: Clear to auscultation Heart Exam: Positive: Rate Normal, Regular Rhythm Abdomen Exam: Positive: Normal bowel sounds, Soft Extremity Exam: Positive: Edema (mild); Negative: Cyanosis Neuro Exam: Positive: Cranial Nerves 3-12 NL Psych Exam: Positive: Mental status NL, Mood NL Assessment /Plan Assessment Mrs. Chang is an 84 year old female here with acute on chronic low back pain. Imaging did not demonstrate an acute process. Otherwise, she has urinary retention. May be secondary to oxybutynin. Will discontinue and bladder scan. If she is not able to urinate spontaneously by tomorrow, she may need to go home with Henry catheter and Urology follow up. Plan/VTE VTE Prophylaxis Ordered?: Yes Plan 1. Acute on chronic back pain -Pain controlled with diclofenac 2. Acute urinary retention -May be medication induced. Discontinued oxybutynin -If not resolved by tomorrow, she may need to go home with Henry catheter and urology follow up 3. Unsteady Gait -Continue physical therapy -Has 24/7 care at home 4. Liver cirrhosis -Suggested by CT, US liver demonstrates coarse liver -Follow up with PCP 5. History of DVT -Continue apixaban 6. Dyslipidemia -Atorvastatin 7. Depression/Anxiety -Sertraline 8. GERD -Omeprazole 9. Obesity -BMI of 32.5 -Follow up with PCP on weight management 10. DVT ppx -On apixaban VS, I&O, 24H, Fishbone Vital Signs/I&O Vital Signs Date Time Temp Pulse Resp B/P (MAP) Pulse Ox O2 Delivery O2 Flow Rate FiO2 03/23/20 14:00 98.7 67 18 117/54 (75) 93 Room Air I&O- Last 24 Hours up to 6 AM 03/23/20 05:59 Intake Total 1020 ml Output Total 1950 ml Balance -930 ml CUAUHTEMOC BATRES DO Mar 23, 2020 18:51
[2020-03-23 22:00] VITALS: BP 114/52
[2020-03-24] MEDS: ACETAMINOPHEN 650MG ER TAB (TYLENOL ARTHRITIS) PO SCH ×2 (05:37→14:17)
[2020-03-24 06:27] LABS: HEMATOCRIT 35.9 % (36.0-47.0); HEMOGLOBIN 11.3 g/dl (12.0-15.5); MEAN CORPUSCULAR HEMOGLOBIN 31.5 pg (27.0-33.0); MEAN CORPUSCULAR HGB CONC 31.5 g/dl (32.0-36.5); PLATELET COUNT, AUTOMATED 162 10^3/uL (150-450); RED BLOOD COUNT 3.59 10^6/uL (4.00-5.40); WHITE BLOOD COUNT 10.5 10^3/uL (4.0-10.0)
[2020-03-24 06:49] LABS: BLOOD UREA NITROGEN 16 MG/DL (7-18); CALCIUM LEVEL 8.6 MG/DL (8.8-10.2); CARBON DIOXIDE LEVEL 28 MEQ/L (21-32); CHLORIDE LEVEL 110 MEQ/L (98-107); CREATININE FOR GFR 0.74 MG/DL (0.55-1.30); GLOMERULAR FILTRATION RATE > 60.0 (>32); GLUCOSE, FASTING 89 MG/DL (70-100); POTASSIUM SERUM 4.1 MEQ/L (3.5-5.1); SODIUM LEVEL 142 MEQ/L (136-145)
[2020-03-24] MEDS: FLUTICASONE PROP 0.05% NASAL SPRAY 16 GM (FLONASE) SCH (08:59)
[2020-03-24] MEDS: DICLOFENAC EPOLAMINE 1.3 % PATCH TOP SCH (08:59)
[2020-03-24] MEDS: ASPIRIN 81 MG ENTERIC TAB PO SCH (08:59)
[2020-03-24] MEDS: OMEPRAZOLE 20 MG CAP PO SCH (08:59)
[2020-03-24] MEDS: RALOXIFENE 60MG TABLET (PATIENT'S OWN MED) PO SCH (08:59)
[2020-03-24] MEDS: APIXABAN 5 MG TAB (ELIQUIS) PO SCH (08:59)
[2020-03-24] MEDS: CALCIUM/VITAMIN D 500 MG TAB PO SCH (09:00)
[2020-03-24] MEDS: SERTRALINE HCL 50 MG TAB PO SCH (09:00)
[2020-03-24] MEDS: FUROSEMIDE 20 MG TAB PO SCH (09:00)
[2020-03-24] MEDS: ATORVASTATIN 20 MG TAB PO SCH (09:00)
[2020-03-24] MEDS: DOCUSATE SODIUM 100 MG CAP PO SCH (09:00)
[2020-03-24] MEDS ORDERED: DICL1PAT6 TOP (09:29)
--- NOTE | 2020-03-24 12:02 | CR ---
DATE: 03/21/2020 CHIEF COMPLAINT: Low back pain. HISTORY OF PRESENT ILLNESS: This 84-year-old female complains of 3-day slowly increasing lower back pain. Yesterday she felt some numbness going into the anterior aspect of the left thigh down to the knee, but this resolved in the meantime overnight since she was admitted to the hospital under the hospitalist service. No change in her bowel or bladder function. If anything, she feels like she usually gets constipated for 3 or 4 days sometimes at times. Sometimes she also feels like she sits on a toilet and nothing happens, but there is no change in this. No sensation. She has had a lumbar spine surgery 5 years ago. She is unsure who the surgeon was. Apparently, she had a lower lumbar spine laminectomy and fusion. No fever, chills, or other symptoms. Most of her pain she describes as a band-like distribution around her lower lumbar spine. She is able to ambulate, but yesterday she was having great difficulty getting up and around. MEDICAL HISTORY: Per the hospitalist note. 1. Chronic back pain. 2. Spinal stenosis, L3-4. Laminectomy with right-sided fusion, L3-L5. 3. DL . 4. Chronic hypertension. 5. Remote gout. 6. Deep venous thrombosis (DVT) on apixaban. 7. Osteopenia. 8. Vitamin D deficiency. 9. Depression. 10. Gastroesophageal reflux disease (GERD). 11. Allergic rhinitis. 12. Stress incontinence. 13. Chronic constipation. 14. Liver cirrhosis. 15. Tonsillectomy. 16. Hernia repair. 17. Partial hysterectomy. 18. Cholecystectomy. 19. Dilatation and curettage (D and C). 20. Skin graft surgery from heart. 21. Hemorrhoid surgery. MEDICATIONS: Eliquis, ASA, atorvastatin, Colace, vitamin D, fluticasone, furosemide, lansoprazole, oxybutynin, raloxifene, sertraline. ALLERGIES: CODEINE, FLUOXETINE. SOCIAL HISTORY: She is a nonsmoker. She lives alone. PHYSICAL EXAMINATION: This is a well-appearing 84-year-old female. She has unlabored breathing. She is sitting up. She is able to ambulate easily, arise from her chest independently and walk with a walker. There is a midline lumbar longitudinal incision that appears well healed, free of complications, redness, swelling, drainage, or pain. No obvious steps or gaps to her lumbar spine on palpation. There is a little bit of soreness to the posterolateral left hip. Normal sensation in the L2-S1 nerve distributions as well as the perianal region to light touch. Strong L2-S1, 5/5 in the lower extremities. Reflexes difficult to elicit at the knees and ankles. Her plantars are equivocal. No clonus in the lower extremities. Feet are warm and well perfused. Her vital signs reveal a low-grade temperature today, 99.8, otherwise blood pressure stable. No tachycardia. Saturations 95% on room air. Much of her pain she describes in the right lower quadrant. Overall the abdomen is soft but has point tenderness to the right lower quadrant. Laboratory examination revealed white blood cell count 10.2, neutrophil percentage 62. Chemistries appear grossly normal. Urine was negative. Lumbar spine radiograph reveals degenerative spondylosis changes. Stable radiograph from 2015. No acute abnormalities. CT abdomen and pelvis reveals prior cholecystectomy and hysterectomy. Prior surgeries at the gastroesophageal (GE) junction. Suggestion of hepatic cirrhosis. Otherwise negative CT abdomen and pelvis. No colonic diverticulosis or diverticulitis. Moderate wedge configuration of T10 and slight wedge configuration of T11, which appear to be chronic. Degenerative changes of the lumbar spine and facet arthropathy. ASSESSMENT AND PLAN: This 84-year-old female could have mechanical low back pain or a quickly resolving lumbar radiculopathy. I see no concerning neurologic features requiring an urgent CT, although I have ordered postvoid residual, but checking her urine, outputs appear to be normal, and she does have difficulties chronically with urinary retention. She is ambulating well without weakness or neurologic symptoms in the lower extremities today, so I favor a watchful waiting approach to this problem, as she has had prior surgery with no signs of infection or difficulties related to that. More of her pain today seems to be coming from her right lower quadrant of her abdomen, and I will leave it up to expert advice and opinion on the hospitalist service whether this warrants further investigations. If she were to develop increasing neurologic symptoms, weakness, numbness or tingling of lower extremities or more change in her bowel and bladder function, loss of control, or urinary retention with postvoid residual, I would recommend obtaining an MRI of the lumbar spine. [facility]
[2020-03-24] MEDS ORDERED: DICL1GEL3 TOP (13:01)
--- NOTE | 2020-03-24 22:13 | DS.PDOC ---
Discharge Summary General Date of Admission Mar 21, 2020 at 19:09 Date of Discharge Mar 24, 2020 Attending Physician: CUAUHTEMOC BATRES DO Specialist/Consultants [facility] Orthopedic surgery, Dr. Castorena Discharge Summary PROCEDURES PERFORMED DURING STAY: None ADMITTING DIAGNOSES: 1. Acute on chronic back pain 2. Unsteady Gait 3. Liver cirrhosis 4. History of DVT 5. Vitamin D def / Osteopenia 6. DLP 7. Chronic HTN 8. Depression 9. GERD 10. Chronic constipation 11. Class 1 obesity DISCHARGE DIAGNOSES: 1. Acute on chronic back pain 2. Unsteady Gait 3. Liver cirrhosis 4. History of DVT 5. Vitamin D def / Osteopenia 6. DLP 7. Chronic HTN 8. Depression 9. GERD 10. Chronic constipation 11. Class 1 obesity 12. Acute urinary retention COMPLICATIONS/CHIEF COMPLAINT: Flank Pain. HISTORY OF PRESENT ILLNESS: Mrs. Chang is an 84-year-old female with chronic back pain, lumbar DJD with spinal stenosis, and lumbar surgery who comes to [facility] for worsening low back pain. 3 days prior to admission she's been having low back pain that she rated 6 out of 10. Pain radiated to her lower abdomen. Denies any falling, but has difficulty walking because of the pain. Denies any fevers. She is noted to have urinary retention in the ED. She did have a CT of the abdomen and pelvis which suggested hepatic cirrhosis HOSPITAL COURSE: The following morning x-ray of the lumbar spine was obtained. Did not show any acute processes. Her back pain was improved. Orthopedic surgery was consulted. Due to the improvement of the back pain there is no need for CT. Otherwise, she's been having some urinary retention. She was on oxybutynin. Oxybutynin was discontinued and she urinated better. Today she denied any fever or chills, chest pain, dyspnea, abdominal pain, or dysuria. She felt ready for home and was subsequently discharge. Towards the afternoon, the nurse rechecked a post void residual. She had 290 ml after urinating. Recommended that she follo w with urology as well. DISCHARGE MEDICATIONS: Please see below. ALLERGIES: Please see below. PHYSICAL EXAMINATION ON DISCHARGE: VITAL SIGNS: Please see below. GENERAL: Comfortable, in no apparent distress. HEENT: Head normocephalic/atraumatic, EOMI, sclera clear. NECK: Supple RESPIRATORY: Lungs clear to auscultation bilaterally, no rales, wheeze or rhonchi. CARDIOVASCULAR: Regular rate and rhythm. ABDOMEN: Soft, nontender, no guarding or rebound tenderness. Normal bowel sounds. MUSCLE SKELETAL: Mild bilateral pitting edema NEUROLOGICAL: CN 312 grossly intact, no focal deficits noted. PSYCHOLOGICAL: Normal mood and affect LABORATORY DATA: Please see below. IMAGING: CT of abdomen and pelvis 1. There has been prior cholecystectomy and hysterectomy. 2. Prior surgery about the GE junction. 3. Suggestion of hepatic cirrhosis. 4. Otherwise negative CT abdomen/pelvis. No colonic diverticulosis or diverticulitis. X-ray of the lumbar spine Degenerative spondylosis changes stable radiographically from 2015. No acute abnormality. Ultrasound of the liver Scan quality somewhat inhibited. Slightly coarse liver texture. No focal liver lesion. Post cholecystectomy. Normal CBD PROGNOSIS: Stable ACTIVITY: As tolerated DIET: Low-fat, low-cholesterol DISCHARGE PLAN: Home with home care DISPOSITION: Home, Self-Care. DISCHARGE INSTRUCTIONS: 1. Follow-up with her PCP within 5 days ITEMS TO FOLLOWUP ON ON OUTPATIENT: 1. May need evaluation for liver cirrhosis demonstrated on CT scan DISCHARGE CONDITION: Stable. Total time spent on discharge planning, discharge summary, medication reconciliation: 45 minutes Vital Signs/I&Os Vital Signs Date Time Temp Pulse Resp B/P (MAP) Pulse Ox O2 Delivery O2 Flow Rate FiO2 03/23/20 22:00 97.2 71 18 114/52 (72) 94 Room Air I&O- Last 24 Hours up to 6 AM 03/24/20 06:00 Intake Total 1240 ml Output Total 1700 ml Balance -460 ml Laboratory Data Labs 24H Laboratory Tests 2 03/24/20 05:53: Nucleated Red Blood Cells % (auto) 0.0, Anion Gap 4L, Glomerular Filtration Rate > 60.0, Calcium Level 8.6L CBC/BMP Laboratory Tests 03/24/20 05:53 Discharge Medications Scheduled Apixaban (Eliquis) 5 Mg Tab, 5 MG PO BID, (Reported) Ascorbic Acid (Vitamin C) 500 Mg Tab, 500 MG PO DAILY, (Reported) Aspirin (Aspirin EC) 81 Mg Tab, 81 MG PO DAILY, (Reported) Atorvastatin Calcium (Atorvastatin Calcium) 20 Mg Tab, 20 MG PO DAILY, (Reported) Calcium Carbonate (Calcium) 600 Mg Tab, 600 MG PO WM, (Reported) Docusate Sodium (Colace) 100 Mg Cap, 100 MG PO DAILY, (Reported) Ergocalciferol (Vitamin D2) (Vitamin D2) 50,000 Units Cap, 50,000 UNITS PO 1XWK, (Reported) UNSURE OF EXACT DAY BUT PATIENT STATES SHE TAKES IT IN THE MIDDLE OF THE WEEK Fluticasone Propionate (Flonase Allergy Relief) 9.9 Ml [place].susp, 1 SPRAY NA BID, (Reported) Furosemide (Furosemide) 20 Mg Tablet, 20 MG PO DAILY, (Reported) Lansoprazole (Prevacid) 30 Mg Cap, 30 MG PO BID, (Reported) Raloxifene HCl (Raloxifene HCl) 60 Mg Tablet, 60 MG PO DAILY, (Reported) Sertraline HCl (Sertraline HCl) 100 Mg Tablet, 150 MG PO DAILY, (Reported) Scheduled PRN Diclofenac Sodium (Diclofenac Sodium) 1% 100GM Gel..gram., 1 APLCT TOP QID PRN for BACK PAIN Allergies Coded Allergies: codeine (Verified Adverse Reaction, Unknown, itching, 12/09/19) propoxyphene (Verified Adverse Reaction, Unknown, N/V, 12/09/19) CUAUHTEMOC BATRES DO Mar 24, 2020 22:13
[2020-03-26] MEDS ORDERED: VITAMIN D 50,000 UNITS CAPSULE (ERGOCALCIFEROL 1.25MG) PO SCH (09:00)
== END 2020-03-24 15:00 | disposition home health service (06) | DRG 552 ==
LOC: M ED 22:12 → M ED INP 22:13 → M MSPAV 03-21 04:36 → OBSVTOIN 03-21 19:09
PROVIDERS: ADMIT Internal Medicine; ATTEND Internal Medicine
DX: M54.5 Low back pain (principal); K74.60 Unspecified cirrhosis of liver; I10 Essential (primary) hypertension; K21.9 Gastro-esophageal reflux disease without esophagitis; F32.9 Major depressive disorder, single episode, unspecified; R26.89 Other abnormalities of gait and mobility; E55.9 Vitamin D deficiency, unspecified; M81.0 Age-related osteoporosis without current pathological fracture; E66.9 Obesity, unspecified; K59.00 Constipation, unspecified; R33.9 Retention of urine, unspecified; Z79.82 Long term (current) use of aspirin; Z79.899 Other long term (current) drug therapy; Z88.5 Allergy status to narcotic agent; Z88.8 Allergy status to other drugs, medicaments and biological substances; E78.5 Hyperlipidemia, unspecified

== ENCOUNTER → 2020-03-28 | Outpatient (REF) | payer MEDICARE, OTHER ==
[~2020-03-28] MED LIST changes: +DICL1GEL3 TOP; +DICL1PAT6 TOP
[2020-03-28 18:21] LABS: HEPATITIS A ANTIBODY IGM NEGATIVE (NEGATIVE); HEPATITIS B CORE ANTIBODY IGM NEGATIVE (NEGATIVE); HEPATITIS B SURFACE ANTIGEN NEGATIVE (NEGATIVE); HEPATITIS C VIRUS ABY INDEX 0.1 INDEX (<0.8)
== END ==
LOC: M LAB REF 16:27
PROVIDERS: ATTEND Physician Assistant Medical
DX: R94.5 Abnormal results of liver function studies (principal)

== ENCOUNTER → 2020-04-04 | Outpatient (REF) | payer MEDICARE, OTHER ==
[2020-04-04 16:39] LABS: BACTERIA, URINE AUTO 1+ (NEGATIVE); RBC, URINE AUTO 36 /HPF (0-3); SQUAMOUS EPITHELIAL CELL UR AU 1 /HPF (0-6); WBC, URINE AUTO TNTC /HPF (0-3)
== END ==
LOC: M SHH 16:08
PROVIDERS: ATTEND Family Medicine
DX: N39.41 Urge incontinence (principal)

== ENCOUNTER → 2020-04-08 | Outpatient (REF) | payer MEDICARE, OTHER | LOC: M SHH 15:18 | PROVIDERS: ATTEND Family Medicine | DX: N39.0 Urinary tract infection, site not specified (principal) ==

== ENCOUNTER → 2020-04-09 | Outpatient (CLI) | payer MEDICARE, OTHER ==
--- NOTE | 2020-04-09 12:52 | REP ---
INDICATION: CIRRHOSIS. COMPARISON: 03/22/2020. TECHNIQUE: Real-time sonographic evaluation of right upper quadrant performed. FINDINGS: Patient has had a prior cholecystectomy.. There is no intrahepatic or extrahepatic biliary dilatation, common bile duct measures 6 mm in maximum diameter. Liver demonstrates diffuse coarsened heterogeneous echotexture compatible with diffuse fibrofatty infiltration. The pancreas could not be visualized due to overlying bowel gas. The right kidney demonstrates no hydronephrosis, with a normal size of cm in length. No free fluid is seen. IMPRESSION: Coarsened echotexture of the liver as seen on prior study with no gross mass. Status post cholecystectomy. No biliary dilatation or free fluid. <Electronically signed by Gustavo Reece > 04/09/20 [id number]
== END ==
LOC: M RAD 09:00
PROVIDERS: ATTEND Physician Assistant Medical
DX: K74.60 Unspecified cirrhosis of liver (principal); Z90.49 Acquired absence of other specified parts of digestive tract

== ENCOUNTER 2020-10-03 17:20 | Inpatient (IN) | payer MEDICARE, OTHER ==
[~2020-10-03] VITALS: Ht 149.9 cm; Wt 74.6 kg
[2020-10-03 18:42] LABS: BASO % 0.3 % (0.0-1.0); EOS # 0.2 10^3/uL (0.0-0.5); EOS % 1.9 % (0.0-3.0); HEMATOCRIT 23.8 % (36.0-47.0); LYMPH # 3.6 10^3/uL (1.5-5.0); LYMPH % 40.5 % (24.0-44.0); MEAN CORPUSCULAR HEMOGLOBIN 23.8 pg (27.0-33.0); MEAN CORPUSCULAR HGB CONC 28.6 g/dl (32.0-36.5); MEAN CORPUSCULAR VOLUME 83.2 fl (80.0-96.0); MONO # 0.6 10^3/uL (0.0-0.8); NEUTROPHILS # 4.5 10^3/uL (1.5-8.5); PLATELET COUNT, AUTOMATED 190 10^3/uL (150-450); RED BLOOD COUNT 2.86 10^6/uL (4.00-5.40)
[2020-10-03 18:45] LABS: HEMOGLOBIN 6.8 g/dl (12.0-15.5)
[2020-10-03 18:53] LABS: INR 1.79; PROTHROMBIN TIME 21.2 SECONDS (12.5-14.3)
[2020-10-03 18:54] LABS: PARTIAL THROMBOPLASTIN TIME 36.7 SECONDS (24.2-38.5)
[2020-10-03 19:05] LABS: BLOOD UREA NITROGEN 16 MG/DL (7-18); CARBON DIOXIDE LEVEL 28 MEQ/L (21-32); CHLORIDE LEVEL 112 MEQ/L (98-107); CK-MB VALUE MASS < 1.0 NG/ML (<3.6); CPK CREATINE PHOSPHOKINASE 65 U/L (26-192); CREATININE FOR GFR 0.69 MG/DL (0.55-1.30); GLOMERULAR FILTRATION RATE > 60.0 (>32); GLUCOSE, FASTING 71 MG/DL (70-100); MB/CK RELATIVE INDEX 1.54 (< OR =4); NT-PRO BNP 237 PG/ML (<450); POTASSIUM SERUM 3.8 MEQ/L (3.5-5.1); SODIUM LEVEL 142 MEQ/L (136-145); TROPONIN I 0.02 NG/ML (< 0.10)
--- NOTE | 2020-10-03 19:05 | REP ---
INDICATION: SOB. COMPARISON: 12/21/2016. TECHNIQUE: Single portable AP view of the chest was performed. FINDINGS: There is [id number] cardiomegaly. There is vascular congestion with diffuse increased interstitial markings compatible with interstitial edema. I suspect small effusions as well. There is calcification of the thoracic aorta. Metallic clips are seen in the upper abdomen on the right. IMPRESSION: [id number] cardiomegaly with vascular congestion and interstitial edema. Small effusions. <Electronically signed by Gustavo Reece > 10/03/20 [id number]
[2020-10-03 19:15] LABS: ALBUMIN 2.6 GM/DL (3.2-5.2); ALT/SGPT 22 U/L (12-78); BILIRUBIN,DIRECT 0.3 MG/DL (0.0-0.2); BILIRUBIN,TOTAL 0.5 MG/DL (0.2-1.0); TOTAL PROTEIN 7.6 GM/DL (6.4-8.2)
[2020-10-03] MEDS ORDERED: ZOLO100T PO (19:28)
[2020-10-03] MEDS ORDERED: ZOLO50TA PO (19:28)
[2020-10-03] MEDS ORDERED: FUROSEMIDE 40MG/4ML VIAL (J1940) IV ONE (19:45)
[2020-10-03] MEDS ORDERED: PANTOPRAZOLE 40MG VIAL (C9113 PER 1) IV ONE (19:45)
[2020-10-03 20:35] VITALS: BP 115/58
[2020-10-03 20:40] VITALS: BP 146/91
[2020-10-03] MEDS ORDERED: MOM 30ML SUSPENSION UDC PO PRN (20:40)
[2020-10-03] MEDS ORDERED: MAALOX 30 ML SUSP *UDC PO PRN (20:40)
[2020-10-03 20:55] VITALS: BP 157/67
--- NOTE | 2020-10-03 21:17 | HPEPDOC ---
[facility] Medical History & Physical Date of Admission October 03, 2020 Date of Service: October 03, 2020 Attending Physician: GARCIA ROBLEDO MD History and Physical CHIEF COMPLAINT: [85 y/o female presents with low hb found on routine lab work] HISTORY OF PRESENT ILLNESS: [This is an 85 y/o female with a pmh of hld, gerd, dvt and diverticulosis who presents to the emergency department after a routine visit to her pcp found a hb of 7. Patient was called by her pcp and told to come to the ed for further evaluation. Repeat cbc performed in our ed showed a hb of 6.8. Patient also noted to be stool heme +. Patient denies abdominal pain, n/v/d/c, dark stools, brbpr, coffee ground emesis. Patient states her only complaint is of increased sob and swollen feet over the past two days. Patient states that she has been increasingly short of breath and that her symptoms are worse with activity. Patient states that this is new for her. Patient denies cough, fever, chills, chest pain, syncope.] PAST MEDICAL HISTORY: 1. [See HPI PAST SURGICAL HISTORY: 1. [Cholecystectomy]. 2. [Hysterectomy]. 3. [Skin graft placement to face and hands]. SOCIAL HISTORY: Tobacco use:[Smoked in her 20s] ETOH: [Denies] Illicit drug use: [Denies] FAMILY HISTORY: CHF, HTN, DM ALLERGIES: Please see below. REVIEW OF SYSTEMS: CONSTITUTIONAL: [See HPI]. HEENT: [Denies uri sx]. CARDIOVASCULAR: [See HPI]. RESPIRATORY: [See HPI]. GASTROINTESTINAL: [See HPI]. GENITOURINARY: [Denies dysuria]. SKIN: [Denies rash]. MUSCULOSKELETAL: [Denies acute joint/back pain]. NEUROLOGICAL: [Denies paresthesias]. ENDOCRINE: [Denies hx of DM]. HEMATOLOGIC/LYMPHATIC: [Denies easy bruising]. HOME MEDICATIONS: Please see below. PHYSICAL EXAMINATION: VITAL SIGNS: Please see below. GENERAL APPEARANCE: [This is an 85 y/o female who appears her stated age. She is resting in bed and does not appear to be in acute distress.]. HEENT: [No mass or lesion. No scleral icterus, conjunctival erythema. EOMI. Nares patent. Oral mucosa moist without erythema. ]. CARDIOVASCULAR: [Regular rate, rhythm. No murmurs, rubs, gallops.]. LUNGS: [Crackles heard at b/l bases.]. ABDOMEN: [Soft, mild epigastric, ruq tenderness]. MUSCULOSKELETAL: [No joint deformity noted]. EXTREMITIES: [Mild peripheral edema noted. No overlying skin changes. Pulses intact.]. NEUROLOGICAL: [Sensation intact. Speech clear. A+Ox3. No focal deficits.]. PSYCHIATRIC: [Mood and affect appear appropriate.]. LABORATORY DATA: See below. IMAGING: [Chest xray: FINDINGS: There is jgab-sy-vutpakdg cardiomegaly. There is vascular congestion with diffuse increased interstitial markings compatible with interstitial edema. I suspect small effusions as well. There is calcification of the thoracic aorta. Metallic clips are seen in the upper abdomen on the right. IMPRESSION: Aobw-os-bcwpcumt cardiomegaly with vascular congestion and interstitial edema. Small effusions. ] MICROBIOLOGY: Please see below. ASSESSMENT: [This is an 85 y/o female with a pmh of hld, gerd and diverticulosis who presents to the emergency department after a routine visit to her pcp found a hb of 7. Patient found to be stool heme+ in the ed as well. Patient also incidentally found to have chf pattern on chest x-ray as well as trace peripheral edema. Patient has never had formal heart failure diagnosis before.]. . PLAN: 1. [GI Bleed - Likely upper gi bleed d/t no bloody stools or obvious black stool. - Dr. Vargas, surgery, has been consulted to evaluate need for endoscopy. Assistance is greatly appreciated. - 2 units of blood given in the ED - Will trend hb q12h for now - Can transfuse again if hb drops below 7 - IV protonix 40mg bid, carafate 1g bid, octreotide, iron replacement - Admit to med surg for gi bleed workup 2. SOB - Potentially CHF. Patient had low bnp in the ed, however chest x-ray is significant for cardiomegaly, pleural effusions, vascular congestion. Patient mildly edematous on exam. - Will order echocardiogram to confirm - Will give lasix for now 3. Hx of DVT - will hold eliquis for now d/t bleed 4. HLD - continue atorvastatin 5. GERD - patient will be receiving iv protonix as stated 6. DVT prophylaxis - TEDs and SCDs due to bleed ]. Vital Signs Vital Signs Date Time Temp Pulse Resp B/P (MAP) Pulse Ox O2 Delivery O2 Flow Rate FiO2 10/03/20 20:55 99.1 83 18 157/67 96 Room Air Laboratory Data Labs 24H Laboratory Tests 2 10/03/20 18:29: Immature Granulocyte % (Auto) 0.3, Neutrophils (%) (Auto) 50.0, Lymphocytes (%) (Auto) 40.5, Monocytes (%) (Auto) 7.0, Eosinophils (%) (Auto) 1.9, Basophils (%) (Auto) 0.3, Neutrophils # (Auto) 4.5, Lymphocytes # (Auto) 3.6, Monocytes # (Auto) 0.6, Eosinophils # (Auto) 0.2, Basophils # (Auto) 0.0, Nucleated Red Blood Cells % (auto) 0.0, Prothrombin Time 21.2H, Prothromb Time International Ratio 1.79, Activated Partial Thromboplast Time 36.7, Anion Gap 2L, Glomerular Filtration Rate > 60.0, Calcium Level 8.0L, Total Bilirubin 0.5, Direct Bilirubin 0.3H, Aspartate Amino Transf (AST/SGOT) 47H, Alanine Aminotransferase (ALT/SGPT) 22, Alkaline Phosphatase 108, Total Creatine Kinase 65, Creatine Kinase MB < 1.0, Creatine Kinase MB Relative Index 1.54, Troponin I 0.02, MD-Lat-Z-Type Natriuretic Peptide 237, Total Protein 7.6, Albumin 2.6L, Albumin/Globulin Ratio 0.5L, Thyroid Stimulating Hormone (TSH) 2.480 CBC/BMP Laboratory Tests 10/03/20 18:29 Microbiology Microbiology 10/03/20 Respiratory Virus Panel (PCR) ([facility]) - Final, Complete Home Medications Scheduled Apixaban (Eliquis) 5 Mg Tab, 5 MG PO BID 2ND DOSE WITH DINNER Ascorbic Acid (Vitamin C) 500 Mg Tab, 500 MG PO DAILY Aspirin (Aspirin EC) 81 Mg Tab, 81 MG PO DAILY Atorvastatin Calcium (Atorvastatin Calcium) 20 Mg Tab, 20 MG PO DAILY Ergocalciferol (Vitamin D2) (Vitamin D2) 50,000 Units Cap, 50,000 UNITS PO 1XWK TUESDAY Furosemide (Furosemide) 20 Mg Tablet, 40 MG PO DAILY Lansoprazole (Prevacid) 30 Mg Cap, 30 MG PO BID 2ND DOSE WITH DINNER Raloxifene HCl (Raloxifene HCl) 60 Mg Tablet, 60 MG PO DAILY Sertraline Hcl (Zoloft) 100 Mg Tablet, 100 MG PO DAILY Sertraline Hcl (Zoloft) 50 Mg Tablet, 50 MG PO QHS Scheduled PRN Docusate Sodium (Colace) 100 Mg Cap, 100 MG PO DAILY PRN for CONSTIPATION Allergies Coded Allergies: codeine (Verified Adverse Reaction, Unknown, itching, 12/09/19) propoxyphene (Verified Adverse Reaction, Unknown, N/V, 12/09/19) A-FIB/CHADSVASC A-FIB History Current/History of A-Fib/PAF?: No Attending Note Attending Note time of service 755pm is an 84 yr old w a hx of liver cirrhosis, lumbar DJD w spinal stenosis, hx of L3-L4 laminectomy w right sided fusion of L3-L5, HTN ,DVT, Osteopenia, Depression & GERD who was sent by her PCP for evaluation of acute anemia and was found to have a + heme occult. # possible UGIB Plan: we will ask RNs to place 2 large bore IVs, check orthostats, trend Hg afer transfusing 1 unit of PRBCs, start venofer pending iron studies, start PPI, octreotide and ceftriaxone, hold ASA and Apixaban / f/u w for endoscopy rest per REN Zamora's H&P [place] October 03, 2020 21:17 GARCIA ROBLEDO MD October 03, 2020 23:00
[2020-10-03 21:38] LABS: FERRITIN 4 NG/ML (8-252); IRON (FE) 14 UG/DL (50-170); PERCENT SATURATION 3.2 % (13.2-45.0); TOTAL IRON BINDING CAPACITY 432 UG/DL (250-450)
[2020-10-03 21:43] VITALS: BP 141/64
[2020-10-03] MEDS ORDERED: IRON SUCROSE 100 MG in NS 100 ML IV SCH (22:00)
[2020-10-03 22:01] LABS: VITAMIN B12 LEVEL 1642 PG/ML
[2020-10-03 22:07] LABS: FOLATE > 24.0 NG/ML
[2020-10-03 22:26] VITALS: BP 142/67
[2020-10-03] MEDS ORDERED: IRON SUCROSE 100MG 5ML VIAL (J1756 PER 1MG) IV SCH (22:40)
[2020-10-03] MEDS ORDERED: NS 1,000 ML IV SCH (22:40)
[2020-10-03] MEDS ORDERED: OCTREOTIDE ACETATE 1,200 MCG in NS 238.8 ML IV SCH (23:00)
[2020-10-03] MEDS ORDERED: cefTRIAXone SOD 1 GM in D5W MINI-BAG PLUS 50 ML IV SCH (23:00)
[2020-10-04] VITALS (12 sets, daily range): BP systolic 100–132; BP diastolic 49–75
[2020-10-04] MEDS: SERTRALINE HCL 50 MG TAB PO SCH ×2 (00:44→21:00)
[2020-10-04] MEDS: DOCUSATE SODIUM 100MG CAPSULE PO SCH ×3 (00:44→21:00)
[2020-10-04 06:36] LABS: HEMATOCRIT 25.8 % (36.0-47.0); HEMOGLOBIN 7.6 g/dl (12.0-15.5); MEAN CORPUSCULAR HEMOGLOBIN 24.7 pg (27.0-33.0); MEAN CORPUSCULAR HGB CONC 29.5 g/dl (32.0-36.5); MEAN CORPUSCULAR VOLUME 83.8 fl (80.0-96.0); PLATELET COUNT, AUTOMATED 170 10^3/uL (150-450); RED BLOOD COUNT 3.08 10^6/uL (4.00-5.40); WHITE BLOOD COUNT 9.4 10^3/uL (4.0-10.0)
[2020-10-04 06:52] LABS: BLOOD UREA NITROGEN 14 MG/DL (7-18); CALCIUM LEVEL 7.4 MG/DL (8.8-10.2); CARBON DIOXIDE LEVEL 28 MEQ/L (21-32); CHLORIDE LEVEL 109 MEQ/L (98-107); CREATININE FOR GFR 0.76 MG/DL (0.55-1.30); GLOMERULAR FILTRATION RATE > 60.0 (>32); GLUCOSE, FASTING 94 MG/DL (70-100); MAGNESIUM LEVEL 1.8 MG/DL (1.8-2.4); POTASSIUM SERUM 3.8 MEQ/L (3.5-5.1); SODIUM LEVEL 142 MEQ/L (136-145)
[2020-10-04] MEDS: ATORVASTATIN 20 MG TAB PO SCH (08:23)
[2020-10-04] MEDS: PANTOPRAZOLE 40MG VIAL (C9113 PER 1) IV SCH ×2 (08:23→21:00)
[2020-10-04] MEDS: ASCORBIC ACID 500 MG TAB PO SCH (08:23)
[2020-10-04] MEDS: SERTRALINE 100 MG TAB PO SCH (08:23)
[2020-10-04] MEDS: GASTROGRAFIN SOLUTION 30ML PO SCH ×2 (08:23→09:23)
[2020-10-04 08:44] LABS: C REACTIVE PROTEIN QUANTITATIV 1.01 MG/DL (0.00-0.30)
[2020-10-04] MEDS ORDERED: LEVALBUTEROL 1.25 MG/0.5 ML CONCENTRATE NEB INH PRN (08:45)
[2020-10-04] MEDS ORDERED: SUCRALFATE SUSP 1GM/10ML UD PO SCH (09:00)
[2020-10-04] MEDS ORDERED: FUROSEMIDE 40 MG TAB PO SCH (09:00)
[2020-10-04] MEDS ORDERED: ASPIRIN 81MG ENTERIC TABLET PO SCH (09:00)
[2020-10-04] MEDS: MIDODRINE 5 MG TAB PO SCH ×3 (09:23→15:38)
[2020-10-04 09:42] LABS: NT-PRO BNP 218 PG/ML (<450)
[2020-10-04 09:53] LABS: ERYTHROCYTE SEDIMENTATION RATE 45 mm/hr (0-30)
--- NOTE | 2020-10-04 10:25 | REP ---
INDICATION: gi bleed r/o mass COMPARISON: 03/21/2020. TECHNIQUE: CT Scan of the abdomen and pelvis was performed without intravenous contrast. Oral contrast was administered. Sagittal and coronal reconstruction images performed. FINDINGS: Lung bases: Mild increased interstitial opacities are seen in the lung bases bilaterally. Mild cardiomegaly. Liver: Grossly unremarkable. Gallbladder: Prior cholecystectomy. Spleen: Grossly unremarkable. Adrenals: Normal. Pancreas: Grossly unremarkable.. Kidneys: No hydronephrosis or nephrolithiasis. Ureters demonstrate no dilatation or calculus. Small and large bowel: Grossly unremarkable. Free fluid: None. Abdominal aorta: No aneurysm. Adenopathy: None. Appendix: Not inflamed. Osseous structures: There are degenerative changes of the spine with a chronic compression deformity of T10 unchanged. Pelvis: No mass. No bladder calculus seen. Prior hysterectomy. There is superficial soft tissue edema in the right lower lateral gluteal region. IMPRESSION: Mild increased interstitial opacities in the lung bases bilaterally. No significant abnormalities visualized in the abdomen or pelvis. There is superficial soft tissue edema in the right lower lateral gluteal region. <Electronically signed by Gustavo Reece > 10/04/20 1021
[2020-10-04] MEDS: LEVALBUTEROL 1.25 MG/0.5 ML CONCENTRATE NEB INH SCH ×3 (11:11→20:00)
--- NOTE | 2020-10-04 12:08 | IPN ---
PROGRESS NOTE DATE: 10/04/2020 SUBJECTIVE: Patient was seen and examined at the bedside. Chart has been reviewed. She denies any bright red blood per rectum, melena, black tarry stools, chest pain, pressure or tightness. Shortness of breath is unchanged. No dizziness, lightheadedness, but has not been out of bed. Patient has been transfused 2 units RBCs. This morning H&H repeated is still pending. OBJECTIVE: Vital signs: Temperature 97.2, pulse 89, respiratory rate 18, blood pressure 113/56, 93% on nasal cannula. General: Patient has slight pallor. No icterus, jaundice. No use of respiratory accessory muscles. HEENT: Pupils are equal, round and reactive to light and accommodation. Extraocular muscles are intact. Moist mucous membranes. Neck: No JVD, no thyromegaly, no cervical lymphadenopathy, no tracheal deviation or carotid bruits. Heart: S1 and S2 sinus rhythm, no murmurs, rubs or gallops. Lungs: Diminished with faint expiratory wheezing bilaterally. Air entry is equal. No rales. Abdomen: Soft, nontender, nondistended, positive bowel sounds. Extremities: No cyanosis or clubbing. LABORATORY DATA: Notable for admission hemoglobin of 6.8, current hemoglobin at 6:18 this morning was 7.6, hematocrit 25. BNP 237. ASSESSMENT: This is an 85-year-old, Full Code, who lives alone with her passing away just 5 months ago, but a good support system with family members staying with her at night taking turns, presented to the Emergency Room with abnormal blood test, hemoglobin of 6.8 and with some anemia. She has a past medical history significant for diverticulosis, DVT, reflux and hyperlipidemia not on any anticoagulants, but was taking an antiplatelet, aspirin at home. CURRENT ISSUES: As follows: 1. Anemia with suspected GI bleed in the setting of chronic aspirin use possible upper GI. 2. Suspected upper GI bleed. 3. History of DVT not on anticoagulation. 4. History of diverticulosis. 5. Hypertension, controlled. 6. History of gastroesophageal reflux disease. 7. Depression. 8. Abnormal chest x-ray, possible fluid overload. PLAN: Patient has no fever or chills, no other active signs of intra-abdominal infection therefore ceftriaxone will be discontinued. She will be transfused 3 units of RBCs. She did receive I.V. Venofer. May continue on vitamin C, Protonix 40 twice a day and Carafate before meals and at bedtime. Obtain CT abdomen and pelvis, rule out colonic mass. Patient's BNP is 245 despite findings of vascular congestion on chest x-ray. Lasix has been given 1 dose yesterday due to low blood pressure and we will give midodrine and 1 dose of Lasix, obtain a 2D echo. Compression stockings for DVT prophylaxis. CODE STATUS: Full Code.
[2020-10-04] MEDS: SUCRALFATE SUSP 1GM/10ML UD PO SCH ×3 (12:30→21:00)
[2020-10-04] MEDS: FUROSEMIDE 20MG/2ML VIAL (J1940) IV SCH ×2 (12:30→17:39)
--- NOTE | 2020-10-04 13:49 | ECGEPIP ---
[facility] - ED Test Date: 2020-10-03 Pat Name: MICHELLE CARTY Department: Room: [place] [address] Gender: Female Therapist Rrt: RITCHIE : 1935 Requested By: Tammy Valdovinos Order Number: [id number] Reading MD: Tammy Valdovinos Measurements Intervals [place] Rate: 84 P: 65 TN: 152 QRS: 1 QRSD: 74 T: 2 QT: 382 QTc: 451 Interpretive Statements Normal sinus rhythm Nonspecific ST abnormality delayed r progression increased rate 12/21/16 Electronically Signed on 10-04-2020 13:49:32 EDT by Tammy Valdovinos
[2020-10-04 18:30] LABS: HEMATOCRIT 30.3 % (36.0-47.0); MEAN CORPUSCULAR HEMOGLOBIN 25.1 pg (27.0-33.0); MEAN CORPUSCULAR HGB CONC 29.7 g/dl (32.0-36.5); MEAN CORPUSCULAR VOLUME 84.6 fl (80.0-96.0); PLATELET COUNT, AUTOMATED 182 10^3/uL (150-450); RED BLOOD COUNT 3.58 10^6/uL (4.00-5.40); WHITE BLOOD COUNT 9.8 10^3/uL (4.0-10.0)
[2020-10-05 06:00] VITALS: BP 143/63
[2020-10-05 06:06] LABS: HEMATOCRIT 28.6 % (36.0-47.0); HEMOGLOBIN 8.7 g/dl (12.0-15.5); MEAN CORPUSCULAR HEMOGLOBIN 25.4 pg (27.0-33.0); MEAN CORPUSCULAR HGB CONC 30.4 g/dl (32.0-36.5); MEAN CORPUSCULAR VOLUME 83.4 fl (80.0-96.0); PLATELET COUNT, AUTOMATED 168 10^3/uL (150-450); RED BLOOD COUNT 3.43 10^6/uL (4.00-5.40); WHITE BLOOD COUNT 10.3 10^3/uL (4.0-10.0)
[2020-10-05 06:24] LABS: BLOOD UREA NITROGEN 14 MG/DL (7-18); CALCIUM LEVEL 7.6 MG/DL (8.8-10.2); CARBON DIOXIDE LEVEL 31 MEQ/L (21-32); CHLORIDE LEVEL 108 MEQ/L (98-107); CREATININE FOR GFR 0.88 MG/DL (0.55-1.30); GLOMERULAR FILTRATION RATE > 60.0 (>32); GLUCOSE, FASTING 99 MG/DL (70-100); MAGNESIUM LEVEL 1.9 MG/DL (1.8-2.4); POTASSIUM SERUM 3.6 MEQ/L (3.5-5.1); SODIUM LEVEL 142 MEQ/L (136-145)
[2020-10-05] MEDS: LEVALBUTEROL 1.25 MG/0.5 ML CONCENTRATE NEB INH SCH ×8 (07:16→21:59)
[2020-10-05] MEDS: MIDODRINE 5 MG TAB PO SCH ×3 (07:29→17:36)
[2020-10-05] MEDS: SUCRALFATE SUSP 1GM/10ML UD PO SCH ×4 (07:29→20:19)
[2020-10-05 08:14] LABS: NT-PRO BNP 300 PG/ML (<450)
[2020-10-05] MEDS ORDERED: metOLazone 2.5 MG TAB PO ONE (08:30)
--- NOTE | 2020-10-05 08:41 | REP ---
INDICATION: wheeze sob. COMPARISON: 10/03/2020. TECHNIQUE: Single portable AP view of the chest was performed. FINDINGS: Cardiomegaly is unchanged. There is some calcification of the thoracic aorta with the mediastinal silhouette unchanged. Mild pulmonary vascular congestion is noted with improved interstitial edema bilaterally, there appears to be mild residual. IMPRESSION: Improved CHF with mild residual interstitial edema bilaterally. <Electronically signed by Gustavo Reece > 10/05/20 0838
[2020-10-05] MEDS: PANTOPRAZOLE 40MG VIAL (C9113 PER 1) IV SCH ×2 (08:49→20:18)
[2020-10-05] MEDS: ASCORBIC ACID 500 MG TAB PO SCH (08:50)
[2020-10-05] MEDS: SERTRALINE 100 MG TAB PO SCH (08:50)
[2020-10-05] MEDS: ATORVASTATIN 20 MG TAB PO SCH (08:50)
[2020-10-05] MEDS: DOCUSATE SODIUM 100MG CAPSULE PO SCH ×2 (08:50→20:18)
[2020-10-05] MEDS: ACETAMINOPHEN TAB 650MG DOSE (2X325MG) PO PRN (08:54)
[2020-10-05] MEDS ORDERED: FUROSEMIDE 40MG/4ML VIAL (J1940) IV ONE ×2 (09:00→12:00)
[2020-10-05] MEDS ORDERED: MAG SULF 1GM/100ML (MAG RUN) 1 GM in IV 1 EA IV ONE (09:00)
[2020-10-05] MEDS ORDERED: POTASSIUM CHLORIDE 10% LIQ 20 MEQ/15 ML UDC PO ONE (09:00)
[2020-10-05 12:14] LABS: BLOOD UREA NITROGEN 14 MG/DL (7-18); CALCIUM LEVEL 7.9 MG/DL (8.8-10.2); CARBON DIOXIDE LEVEL 29 MEQ/L (21-32); CHLORIDE LEVEL 107 MEQ/L (98-107); CREATININE FOR GFR 0.85 MG/DL (0.55-1.30); GLOMERULAR FILTRATION RATE > 60.0 (>32); GLUCOSE, FASTING 122 MG/DL (70-100); MAGNESIUM LEVEL 2.2 MG/DL (1.8-2.4); POTASSIUM SERUM 4.1 MEQ/L (3.5-5.1); SODIUM LEVEL 142 MEQ/L (136-145)
--- NOTE | 2020-10-05 13:38 | IPN ---
PROGRESS NOTE DATE: 10/05/2020 SUBJECTIVE: Patient still complains of shortness of breath, was found to be wheezing despite intravenous (IV) Lasix. Patient remains in positive fluid balance, not diuresing well, 600 mL yesterday. Patient denies any dizziness or lightheadedness, has been transfused a total of 2 units red blood cells (RBCs) with increase in hemoglobin from 6.8 to 8.7. No overt gastrointestinal (GI) bleed. No hematemesis, bright red blood per rectum, black tarry stools. No other complaints of cough, fever or chills overnight. OBJECTIVE: Temperature 97, pulse 78, respiratory rate 20, blood pressure 143/63, 92% on room air. GENERAL: Awake, alert, oriented to person, place or time. No use of respiratory accessory muscles. Patient has no pallor, icterus or jaundice. HEENT: No jugular venous distention (JVD), thyromegaly or cervical lymphadenopathy. LUNGS: Diminished with bilateral wheezing. HEART: S1, S2. Sinus rhythm. ABDOMEN: Soft, nontender, nondistended. Positive bowel sounds. EXTREMITIES: 1+ pitting edema bilateral lower extremities. INTAKE AND OUTPUT: Yesterday 2370, output of 600, positive 1770. Current weight: 75.8 yesterday, 75.5 today. From midnight, patient only had 200 mL of urine out. LABORATORY DATA: CBC, metabolic panel have been reviewed. ASSESSMENT: This is an 85-year-old female who lives alone, with her passing away about five months ago, good support system with family and friends, presented to the emergency room with abnormal blood tests and hemoglobin of 6.8, prior history of diverticulosis, deep venous thrombosis (DVT), reflux, hyperlipidemia, but denied bright red blood per rectum, black tarry stools prior to coming in to the hospital. Patient was taking aspirin at home and was transfused 2 units of red blood cells (RBCs) with significant improvement in hemoglobin, but was found to have fluid overload and new onset congestive heart failure with chest x-ray showing pulmonary edema. The patient was admitted with new onset congestive heart failure (CHF), being diuresed with IV Lasix with 2 liter fluid restriction, still decompensated. IMPRESSION: 1. Symptomatic anemia. Suspected gastrointestinal (GI) bleed. 2. New onset congestive heart failure. 3. History of deep venous thrombosis (DVT), not on anticoagulants. 4. History of diverticulosis. 5. Hypertension. 6. Gastroesophageal reflux. 7. Depression. PLAN: Echocardiogram has been ordered to determine if she has systolic or diastolic dysfunction. She denies any chest pain, pressure, tightness. Troponin negative. She is currently on intravenous Lasix every 6 hours with 2 liter fluid restriction, strict intake and output (I and O), daily weights. 2D echocardiogram is pending. She has been transfused 2 units of RBCs due to symptomatic anemia and continued on proton pump inhibitor (PPI).
[2020-10-05 14:00] VITALS: BP 133/58
--- NOTE | 2020-10-05 15:11 | CR ---
CONSULTATION DATE: 10/04/2020 REASON FOR CONSULTATION: Anemia. BRIEF HISTORY OF PRESENT ILLNESS: The patient is an 85-year-old female with multiple medical issues who presents with hemoglobin of 7 to her primary care office. She had shortness of breath at that time and heme positive stools with also some dark stools, some occasional bright red blood per rectum secondary to her hemorrhoids but otherwise really does not complain of any significant new onset GI bleeding. The patient has had a colonoscopy in the remote past and also had an upper endoscopy, all of which have been over 10 years ago. PAST MEDICAL HISTORY: The patient's past medical history is significant for: 1. History of deep vein thrombosis. 2. Diverticulosis. 3. Gastroesophageal reflux disease. 4. Hyperlipidemia. PAST SURGICAL HISTORY: The patient's past surgical history is significant for: 1. Cholecystectomy. 2. Hysterectomy. 3. Skin graft. MEDICATIONS: 1. Eliquis. 2. Vitamin C. 3. Aspirin. 4. Atorvastatin. 5. Vitamin D. 6. Lasix. 7. Prevacid. 8. Zoloft. PHYSICAL EXAMINATION: GENERAL APPEARANCE: A frail 85-year-old female who looks older than stated age. HEENT: Unremarkable. LUNGS: Clear anteriorly. HEART: Regular with multiple irregular beats. ABDOMEN: Soft, nondistended, nontender, no guarding, no rebound, no peritoneal signs are appreciated. IMPRESSION AND PLAN: The patient has evidence of GI bleeding from a Hemoccult positive stool but more importantly with this anemia I anticipate her most likely etiology is going to be an upper GI source and I agree with her proton pump inhibitors and Carafate that were started. Given that we do not have any significant active bleeding appreciated, I feel that supportive care is probably reasonable at this time, and to proceed with an upper endoscopy possibly as an inpatient or if scheduling issues/the patient's preference is that we may also proceed as an outpatient. From a colonoscopy standpoint, it has been over 10 years since her last colonoscopy. Even with this anemia, it does encourage us to proceed with a repeat colonoscopy as well. Again, whether this is scheduled as an inpatient or outpatient, may depend on scheduling and overall patient health. She definitely is more frail than I have seen her over the years and will need to be optimized from a medical standpoint. Otherwise we will continue to observe her and if she tolerates clears overnight, progressing her diet as tolerated is reasonable over the next 24 hours. MTDD
[2020-10-05] MEDS: SERTRALINE HCL 50 MG TAB PO SCH (20:19)
[2020-10-05 21:00] VITALS: BP 141/46
[2020-10-06] MEDS: LEVALBUTEROL 1.25 MG/0.5 ML CONCENTRATE NEB INH SCH ×11 (00:26→23:15)
[2020-10-06] MEDS ORDERED: FUROSEMIDE 40MG/4ML VIAL (J1940) IV ONE ×2 (05:20→06:00)
[2020-10-06] MEDS ORDERED: metOLazone 2.5 MG TAB PO ONE (05:30)
[2020-10-06 06:24] VITALS: BP 121/58
[2020-10-06 06:34] LABS: BLOOD UREA NITROGEN 15 MG/DL (7-18); CALCIUM LEVEL 7.9 MG/DL (8.8-10.2); CARBON DIOXIDE LEVEL 32 MEQ/L (21-32); CHLORIDE LEVEL 102 MEQ/L (98-107); CK-MB VALUE MASS < 1.0 NG/ML (<3.6); CPK CREATINE PHOSPHOKINASE 133 U/L (26-192); CREATININE FOR GFR 0.81 MG/DL (0.55-1.30); GLOMERULAR FILTRATION RATE > 60.0 (>32); GLUCOSE, FASTING 100 MG/DL (70-100); MAGNESIUM LEVEL 1.9 MG/DL (1.8-2.4); MB/CK RELATIVE INDEX 0.75 (< OR =4); NT-PRO BNP 329 PG/ML (<450); POTASSIUM SERUM 3.1 MEQ/L (3.5-5.1); SODIUM LEVEL 140 MEQ/L (136-145); TROPONIN I 0.02 NG/ML (< 0.10)
--- NOTE | 2020-10-06 06:36 | REPVR ---
PROCEDURE INFORMATION: Exam: XR Chest Exam date and time: 10/06/2020 5:40 AM Age: 85 years old Clinical indication: Shortness of breath; Additional info: SOB R/O chf TECHNIQUE: Imaging protocol: XR of the chest. Views: 1 view. COMPARISON: NM PORTABLE CHEST X-RAY 10/05/2020 8:16 AM FINDINGS: Lungs: No consolidation. Previously noted pulmonary edema has resolved. Pleural spaces: No pleural effusion. No pneumothorax. Heart/Mediastinum: The heart is mildly enlarged but unchanged. Bones/joints: Unremarkable. Soft tissues: There is surgical material projected over epigastrium. There are clips in the right upper quadrant. IMPRESSION: 1. Stable cardiomegaly. 2. Interval complete resolution of pulmonary edema Electronically signed by: Ben Cardoza On 10/06/2020 06:35:41 AM
[2020-10-06] MEDS: DOCUSATE SODIUM 100MG CAPSULE PO SCH ×2 (08:40→20:21)
[2020-10-06] MEDS: ATORVASTATIN 20 MG TAB PO SCH (08:40)
[2020-10-06] MEDS: ASCORBIC ACID 500 MG TAB PO SCH (08:40)
[2020-10-06] MEDS: PANTOPRAZOLE 40MG VIAL (C9113 PER 1) IV SCH (08:40)
[2020-10-06] MEDS: SERTRALINE 100 MG TAB PO SCH (08:40)
[2020-10-06] MEDS: SUCRALFATE SUSP 1GM/10ML UD PO SCH ×4 (08:40→20:21)
[2020-10-06] MEDS ORDERED: PROT1TAB2 PO (09:14)
[2020-10-06] MEDS ORDERED: SUCR1ORA PO (09:14)
[2020-10-06] MEDS ORDERED: POTASSIUM CHLORIDE 10 MEQ SR TABLET PO ONE (09:15)
[2020-10-06 09:58] LABS: PROLACTIN 9.7 NG/ML
--- NOTE | 2020-10-06 11:01 | IPNPDOC ---
Date Seen The patient was seen on 10/06/20. Progress Note Addendum to progress note: Unable to discharge because the patient does not have 24 hours a day 7 days a week care and family unable to provide care at home. Patient will be changed to a SNF status until disposition is finalized by patient's family services and patient's family. VS, I&O, 24H, Fishbone Vital Signs/I&O Vital Signs Date Time Temp Pulse Resp B/P (MAP) Pulse Ox O2 Delivery O2 Flow Rate FiO2 10/06/20 06:24 97.1 77 18 121/58 (79) 93 Room Air I&O- Last 24 Hours up to 6 AM 10/06/20 06:00 Intake Total 760 ml Output Total 1850 ml Balance -1090 ml Laboratory Data 24H LABS Laboratory Tests 2 10/05/20 11:28: Anion Gap 6L, Glomerular Filtration Rate > 60.0, Calcium Level 7.9L, Magnesium Level 2.2 10/06/20 05:47: Anion Gap 6L, Glomerular Filtration Rate > 60.0, Calcium Level 7.9L, Magnesium Level 1.9, Whole Blood Ionized Calcium 4.3L, Total Creatine Kinase 133#, Creatine Kinase MB < 1.0, Creatine Kinase MB Relative Index 0.75, Troponin I 0.02, OG-Mfn-N-Type Natriuretic Peptide 329 CBC/BMP Laboratory Tests 10/05/20 11:28 10/06/20 05:47 Microbiology Microbiology 10/03/20 Respiratory Virus Panel (PCR) ([facility]) - Final, Complete ROHAN CASSIDY MD October 06, 2020 11:01
--- NOTE | 2020-10-06 11:25 | ECHO ---
DATE OF PROCEDURE: 10/04/2020 Age: 85 Gender: Female Height: 148 cm Weight: 76 kg REFERRING PHYSICIAN: REN Yu INDICATION: Congestive heart failure, cardiomegaly. MEASUREMENTS: IVS 0.7 cm LV 5.6 cm LVPW 0.9 cm LA 3.7 cm Aorta 2.8 cm RV 3.6 cm IVC 2.0 cm Mitral E wave velocity 91 cm/s Mitral A wave 73 cm/s E prime septal 7.7 cm/s E prime lateral 7.7 cm/s FINDINGS: This study is of acceptable technical quality, but for limited apical views. The patient is in sinus rhythm. Left ventricle is borderline dilated. It appears to have normal contractility, on apical views it appears that the septal wall might be mildly hypokinetic, but I am not totally certain about that. Right ventricle is of normal size and systolic function. Both atria appear grossly normal for patients age. Aortic valve is tricuspid. It is mildly sclerotic, but has normal mobility. There are also mild degenerative abnormalities of the mitral valve, but mobility of leaflets is preserved. Tricuspid valve appears normal. Pulmonic valve was poorly visualized, but grossly appears normal. No pericardial effusion is noted. Inferior vena cava is dilated and there is no appreciable collapse with aspiration indicative of likely high central venous pressure. Aortic root is normal. Aortic arch and abdominal aorta were not well seen. Doppler interrogation reveals no aortic stenosis and trace insufficiency. There is also trace mitral and trace pulmonic insufficiency. Moderate tricuspid insufficiency is seen. Calculated pulmonary artery pressure is at minimum in the 60s corresponding to moderately severe pulmonary hypertension. Mitral inflow pattern and tissue Doppler imaging of mitral annulus reveals pseudonormal filling pattern suggestive of elevated LVEDP. CONCLUSIONS: 1. Study is of acceptable technical quality, underlying sinus rhythm. 2. Borderline dilated left ventricle with overall preserved contractility and estimated LVEF around 60%. I cannot completely rule out subtle septal wall motion abnormality. Grade 2 diastolic dysfunction. 3. Mildly dilated right ventricle. 4. Trace aortic and mitral insufficiency. 5. Moderate tricuspid insufficiency. 6. High central venous pressure and likely moderately severe pulmonary hypertension (calculated pulmonary artery pressure at minimum 60 mmHg). MTDD
[2020-10-06 12:23] LABS: HEMATOCRIT 34.6 % (36.0-47.0); HEMOGLOBIN 10.6 g/dl (12.0-15.5); MEAN CORPUSCULAR HEMOGLOBIN 25.4 pg (27.0-33.0); MEAN CORPUSCULAR HGB CONC 30.6 g/dl (32.0-36.5); PLATELET COUNT, AUTOMATED 193 10^3/uL (150-450); RED BLOOD COUNT 4.17 10^6/uL (4.00-5.40); WHITE BLOOD COUNT 13.1 10^3/uL (4.0-10.0)
--- NOTE | 2020-10-06 12:34 | IPNPDOC ---
Text Note Date of Service The patient was seen on 10/06/20. NOTE General Surgery Dr Vargas. The pt is an 85 yo female with evidence of GIB with hemoccult positive stool and symptomatic anemia. Has received 2 units PRBCs during admission. The patient is out of bed to the chair this morning. Hemoglobin this morning 8.7. Afebrile. VSS. Out of bed to chair, NAD Lungs clears to auscultation S1-S2 regular rate and rhythm Abdomen soft, nontender, nondistended. Assessment/plan Hemoccult positive/anemia /GIB. Patient is tolerating regular diet. Continue PPI/Carafate Does not appear to have significant active bleeding at this time, plan to continue with supportive care. Consider EGD/colonoscopy as outpatient when medically stable. VS,Fishbone, I+O VS, Fishbone, I+O Laboratory Tests 10/06/20 05:47 Vital Signs Date Time Temp Pulse Resp B/P (MAP) Pulse Ox O2 Delivery O2 Flow Rate FiO2 10/06/20 06:24 97.1 77 18 121/58 (79) 93 Room Air I&O- Last 24 Hours up to 6 AM 10/06/20 05:59 Intake Total 860 ml Output Total 2050 ml Balance -1190 ml Jessica Chu October 06, 2020 12:33
[2020-10-06 12:59] LABS: CALCIUM LEVEL 8.5 MG/DL (8.8-10.2); CREATININE FOR GFR 0.95 MG/DL (0.55-1.30); GLOMERULAR FILTRATION RATE 59.2 (>32); POTASSIUM SERUM 2.8 MEQ/L (3.5-5.1)
[2020-10-06 14:00] VITALS: BP 128/48
--- NOTE | 2020-10-06 15:13 | DSES ---
DISCHARGE SUMMARY DATE OF ADMISSION: 10/03/2020 DATE OF DISCHARGE: 10/06/2020 CONSULTANTS DURING THIS ADMISSION: General surgeon, Dr. Aram Vargas. PRIMARY DISCHARGE DIAGNOSES: 1. Symptomatic anemia. 2. Upper gastrointestinal (GI) bleed in the setting of chronic aspirin and anticoagulation. 3. Congestive heart failure, new onset. 4. Electrolyte abnormalities with low potassium (hypokalemia) and hypocalcemia. 5. Prior history of diverticulosis, deep vein thrombosis (DVT), reflux, and hyperlipidemia. DISCHARGE MEDICATIONS: 1. Carafate 1 gram a.c. and h.s. 2. Protonix 40 mg daily. 3. Vitamin D5 at 100 daily. 4. Atorvastatin 20 daily. 5. Colace 100 daily as needed. 6. Vitamin D 50,000 units weekly. 7. Lasix 40 daily. 8. Prevacid 30 mg p.o. b.i.d. 9. Raloxifene 60 mg daily. 10. Sertraline 100 daily, 50 mg q. h.s. DISCHARGE INSTRUCTIONS: The patient is to hold her apixaban and aspirin for five days. Primary care physician, general surgeon, or sample supervisor may resume once bleeding and anemia have resolved. HOSPITAL COURSE: This is an 85-year-old female admitted on 10/03/2020, due to complaints of shortness of breath and lower extremity edema with CBC showing hemoglobin of 6.8 sent to the emergency room for further evaluation. The patient was transfused two units of RBCs with resultant increase in hemoglobin to 8.7, 28.6 hematocrit. She was found to have acute congestive heart failure with unknown ejection fraction and was diuresed with Lasix and Zaroxolyn. Admission weight was 75.4 kg and discharge weight of 74.6 and was net negative for 48 hours with resolution of her congestive heart failure. Repeat x-ray on 10/06/2020, shows stable cardiomegaly and complete resolution of pulmonary edema. The patient was instructed to keep to strict I and O (intake and output), daily weights, and 2 liter fluid restriction. Continue home medications at home except for the aspirin and Eliquis. She was evaluated by general surgeon, Dr. Vargas during this admission. She did not require any inpatient colonoscopy or EGD, but suspected to have an upper GI bleed, which resolved with Carafate and Protonix here. The patient was asymptomatic and was stable at hospital discharge. DISCHARGE PHYSICAL EXAMINATION: VITAL SIGNS: Temperature 97.1, pulse 77, respiratory rate 18, blood pressure 121/58, 93% on room air. GENERAL: The patient is awake, alert, and oriented to person, place, and time. HEENT: No pallor, icterus, or use of respiratory accessory muscles. No JVD. Moist mucous membranes. LUNGS: Clear to auscultation. No wheezing, rales, or rhonchi. HEART: S1, S2. Regular rate and rhythm. ABDOMEN: Soft, nontender, and nondistended. Positive bowel sounds x4 quadrants. No rebound or guarding. EXTREMITIES: No cyanosis or clubbing. LABORATORY DATA: On discharge her white count 10, hemoglobin 8.7, hematocrit 28.6, platelet count 168,000. Sodium 140, potassium 3.1, chloride 102, bicarb 32, BUN 15, creatinine 0.81, glucose 100. Troponin 0.02. BNP 329. Respiratory panel negative for Coronavirus. IMAGING DATA: Chest x-ray 10/03/2020, [id number] cardiomegaly with vascular congestion, interstitial edema, and small effusion. CT abdomen and pelvis on 10/04/2020, shows mild interstitial opacities in the lung bases bilaterally. No significant abnormalities in the abdomen or pelvis. Superficial soft tissue edema right lower lateral gluteal region. Chest x-ray 10/06/2020, interval improvement and resolution of patient's congestive heart failure, pulmonary edema, and stable cardiomegaly. Time spent on discharge: 30 minutes.
[2020-10-06] MEDS: SERTRALINE HCL 50 MG TAB PO SCH (20:21)
[2020-10-06] MEDS: PANTOPRAZOLE 40MG TAB (PROTONIX) PO SCH (20:21)
[2020-10-06 22:00] VITALS: BP 126/48
[2020-10-07] MEDS: LEVALBUTEROL 1.25 MG/0.5 ML CONCENTRATE NEB INH SCH ×6 (02:47→19:36)
[2020-10-07 06:00] VITALS: BP 114/49
[2020-10-07 07:13] LABS: BLOOD UREA NITROGEN 14 MG/DL (7-18); CALCIUM LEVEL 8.1 MG/DL (8.8-10.2); CARBON DIOXIDE LEVEL 34 MEQ/L (21-32); CHLORIDE LEVEL 101 MEQ/L (98-107); CREATININE FOR GFR 0.82 MG/DL (0.55-1.30); GLOMERULAR FILTRATION RATE > 60.0 (>32); GLUCOSE, FASTING 99 MG/DL (70-100); MAGNESIUM LEVEL 1.8 MG/DL (1.8-2.4); SODIUM LEVEL 140 MEQ/L (136-145)
[2020-10-07] MEDS: ATORVASTATIN 20 MG TAB PO SCH (09:03)
[2020-10-07] MEDS: ASCORBIC ACID 500 MG TAB PO SCH (09:03)
[2020-10-07] MEDS: SERTRALINE 100 MG TAB PO SCH (09:03)
[2020-10-07] MEDS: DOCUSATE SODIUM 100MG CAPSULE PO SCH ×2 (09:03→19:59)
[2020-10-07] MEDS: PANTOPRAZOLE 40MG TAB (PROTONIX) PO SCH ×2 (09:03→19:59)
[2020-10-07] MEDS: SUCRALFATE SUSP 1GM/10ML UD PO SCH ×4 (09:03→19:58)
[2020-10-07] MEDS: POTASSIUM CHLORIDE 10 MEQ SR TABLET PO SCH ×2 (09:33→19:59)
[2020-10-07] MEDS ORDERED: LEVALBUTEROL 1.25 MG/0.5 ML CONCENTRATE NEB INH PRN (12:35)
[2020-10-07 14:00] VITALS: BP 141/57
--- NOTE | 2020-10-07 18:42 | IPNPDOC ---
Date Seen The patient was seen on 10/07/20. Progress Note SUBJECTIVE: H/H improved; however, potassium low for several days. Started on standing dose. D/w surgery who can do colonoscopy on 10/09/20, changed to inpatient as patient is still weak. UA ordered due to incr WBC. Denies abd pain, n/v/d, increased s/s of bleeding. OBJECTIVE: PHYSICAL EXAM: VS: Please see below GENERAL: NAD, sitting up in bed HEENT: AT/NC, no lymphadenopathy Neck: No JVD LUNGS: CTAB, no w/r/r HEART: S1, S2. Sinus rhythm. No m/r/g , +1 pitting edema in lower ext ABDOMEN: Soft, nontender, nondistended. Positive bowel sounds. EXTREMITIES: No cyanosis or clubbing. LABORATORY DATA: Please see below MICRO: UA pending IMAGING: Echocardiogram 10/05/20: 1. Study is of acceptable technical quality, underlying sinus rhythm. 2. Borderline dilated left ventricle with overall preserved contractility and estimated LVEF around 60%. I cannot completely rule out subtle septal wall motion abnormality. Grade 2 diastolic dysfunction. 3. Mildly dilated right ventricle. 4. Trace aortic and mitral insufficiency. 5. Moderate tricuspid insufficiency. 6. High central venous pressure and likely moderately severe pulmonary hypertension (calculated pulmonary artery pressure at minimum 60 mmHg). ASSESSMENT: This is an 85-year-old female PMH of diverticulosis, deep venous thrombosis (DVT), reflux, hyperlipidemia, but denied bright red blood per r ectum, black tarry stools prior to coming in to the hospital admitted with new onset congestive heart failure (CHF), symptomatic anemia likely 2/2 to GI bleed. DIAGNOSES: 1. Acute anemia poss 2/2 to suspected gastrointestinal (GI) bleed. 2. HFpEF without exacerbation s/p diuresis 3. Acute hypokalemia likely 2/2 to diuresis 4. History of diverticulosis. 5. Hypertension. 6. Gastroesophageal reflux. 7. Depression 8. History of deep venous thrombosis (DVT), not on anticoagulants. PLAN: Echocardiogram above, improved s/s of fluid overload, BNP was normal. S/p 2 units of blood on 10/03 and 10/04, improving H/H. Per surgery (Dr. Vargas) will likely take for colonoscopy on 10/09/20. PT:" Continues to report that she does not have 24/7 care at home. She requires very close guarding during ambulation and transfers and will need that care at home. She is appropriate for rehab at this time." Discussed with patient and discharge team. Switched from ALC to inpatient status today with anticipated colonoscopy. VS, I&O, 24H, Fishbone Vital Signs/I&O Vital Signs Date Time Temp Pulse Resp B/P (MAP) Pulse Ox O2 Delivery O2 Flow Rate FiO2 10/07/20 14:00 98.4 85 18 141/57 (85) 92 Room Air I&O- Last 24 Hours up to 6 AM 10/07/20 06:00 Intake Total 900 ml Output Total 1600 ml Balance -700 ml Laboratory Data 24H LABS Laboratory Tests 2 10/07/20 06:26: Anion Gap 5L, Glomerular Filtration Rate > 60.0, Calcium Level 8.1L, Magnesium Level 1.8 CBC/BMP Laboratory Tests 10/07/20 06:26 Microbiology Microbiology 10/06/20 Stool Occult Blood (KELLI) - Final, Complete 10/03/20 Respiratory Virus Panel (PCR) ([facility]) - Final, Complete Rosa Elena Jauregui MD October 07, 2020 18:42
[2020-10-07] MEDS: SERTRALINE HCL 50 MG TAB PO SCH (19:59)
[2020-10-08 06:00] VITALS: BP 120/50
[2020-10-08 06:25] LABS: HEMATOCRIT 30.7 % (36.0-47.0); HEMOGLOBIN 9.3 g/dl (12.0-15.5); MEAN CORPUSCULAR HEMOGLOBIN 25.4 pg (27.0-33.0); MEAN CORPUSCULAR HGB CONC 30.3 g/dl (32.0-36.5); MEAN CORPUSCULAR VOLUME 83.9 fl (80.0-96.0); PLATELET COUNT, AUTOMATED 164 10^3/uL (150-450); RED BLOOD COUNT 3.66 10^6/uL (4.00-5.40); WHITE BLOOD COUNT 10.9 10^3/uL (4.0-10.0)
[2020-10-08 06:48] LABS: BLOOD UREA NITROGEN 14 MG/DL (7-18); CALCIUM LEVEL 8.3 MG/DL (8.8-10.2); CARBON DIOXIDE LEVEL 31 MEQ/L (21-32); CHLORIDE LEVEL 101 MEQ/L (98-107); CREATININE FOR GFR 0.64 MG/DL (0.55-1.30); GLOMERULAR FILTRATION RATE > 60.0 (>32); GLUCOSE, FASTING 105 MG/DL (70-100); MAGNESIUM LEVEL 1.6 MG/DL (1.8-2.4); POTASSIUM SERUM 3.6 MEQ/L (3.5-5.1); SODIUM LEVEL 137 MEQ/L (136-145)
[2020-10-08] MEDS: LEVALBUTEROL 1.25 MG/0.5 ML CONCENTRATE NEB INH SCH ×4 (07:57→20:00)
[2020-10-08] MEDS: SERTRALINE 100 MG TAB PO SCH (08:23)
[2020-10-08] MEDS: ATORVASTATIN 20 MG TAB PO SCH (08:23)
[2020-10-08] MEDS: ASCORBIC ACID 500 MG TAB PO SCH (08:23)
[2020-10-08] MEDS: POTASSIUM CHLORIDE 10 MEQ SR TABLET PO SCH ×2 (08:23→20:06)
[2020-10-08] MEDS: SUCRALFATE SUSP 1GM/10ML UD PO SCH ×4 (08:23→20:06)
[2020-10-08] MEDS: DOCUSATE SODIUM 100MG CAPSULE PO SCH ×2 (08:23→20:06)
[2020-10-08] MEDS: PANTOPRAZOLE 40MG TAB (PROTONIX) PO SCH ×2 (08:23→20:06)
[2020-10-08] MEDS ORDERED: VITAMIN D 50,000 UNITS CAPSULE (ERGOCALCIFEROL 1.25MG) PO SCH (09:00)
[2020-10-08] MEDS: MAGNESIUM OXIDE 400MG TAB (MAG-OX) PO SCH ×2 (09:38→20:06)
[2020-10-08 14:00] VITALS: BP 122/56
[2020-10-08] MEDS ORDERED: MOM 30ML SUSPENSION UDC PO ONE (15:25)
[2020-10-08] MEDS ORDERED: BISACODYL 5 MG TAB PO ONE (15:25)
[2020-10-08] MEDS ORDERED: MAGNESIUM CITRATE 300 ML BTL PO ONE (18:00)
--- NOTE | 2020-10-08 18:35 | IPNPDOC ---
Date Seen The patient was seen on 10/08/20. Progress Note SUBJECTIVE: H/H slightly lower at 9.3/30.7, no incr s/s of bleeding. Potassium now wnl with supplementation BID. Colonoscopy 10/09/20. Ua neg, WBC improved. Denies abd pain, n/v/d, increased s/s of bleeding. OBJECTIVE: PHYSICAL EXAM: VS: Please see below GENERAL: NAD, sitting up in bed HEENT: AT/NC, no lymphadenopathy Neck: No JVD LUNGS: CTAB, no w/r/r HEART: S1, S2. Sinus rhythm. No m/r/g , +1 pitting edema in lower ext ABDOMEN: Soft, nontender, nondistended. Positive bowel sounds. EXTREMITIES: No cyanosis or clubbing. LABORATORY DATA: Please see below MICRO: UA neg IMAGING: Echocardiogram 10/05/20: 1. Study is of acceptable technical quality, underlying sinus rhythm. 2. Borderline dilated left ventricle with overall preserved contractility and estimated LVEF around 60%. I cannot completely rule out subtle septal wall motion abnormality. Grade 2 diastolic dysfunction. 3. Mildly dilated right ventricle. 4. Trace aortic and mitral insufficiency. 5. Moderate tricuspid insufficiency. 6. High central venous pressure and likely moderately severe pulmonary hypertension (calculated pulmonary artery pressure at minimum 60 mmHg). ASSESSMENT: This is an 85-year-old female PMH of diverticulosis, deep venous thrombosis (DVT), reflux, hyperlipidemia, but denied bright red blood per rectum, black tarry stools prior to coming in to the hospital admitted with new onset congestive heart failure (CHF), symptomatic anemia likely 2/2 to GI bleed. DIAGNOSES: 1. Acute anemia poss 2/2 to suspected gastrointestinal (GI) bleed s/p 2 units of blood on 10/03 and 10/04 2. HFpEF without exacerbation s/p diuresis 3. Acute hypokalemia likely 2/2 to diuresis 4. History of diverticulosis. 5. Hypertension. 6. Gastroesophageal reflux. 7. Depression 8. History of deep venous thrombosis (DVT), not on anticoagulants. 9. Hypomagnesemia, acute PLAN: Colonoscopy 10/09/20, no incr s/s of bleeding. VS stable. Started on magnesium supplement BID. Will likely need rehab at discharge, discussed with PFS today. Remains in patient status. VS, I&O, 24H, Fishbone Vital Signs/I&O Vital Signs Date Time Temp Pulse Resp B/P (MAP) Pulse Ox O2 Delivery O2 Flow Rate FiO2 10/08/20 14:00 98.1 81 18 122/56 (78) 93 Room Air I&O- Last 24 Hours up to 6 AM 10/08/20 06:00 Intake Total 630 ml Output Total 150 ml Balance 480 ml Laboratory Data 24H LABS Laboratory Tests 2 10/08/20 03:04: Urine Color YELLOW, Urine Appearance CLEAR, Urine pH 7.0, Urine Specific Fischer 1.014, Urine Protein NEGATIVE, Urine Glucose (UA) NEGATIVE, Urine Ketones NEGATIVE, Urine Blood NEGATIVE, Urine Nitrite NEGATIVE, Urine Bilirubin NEGATIVE, Urine Urobilinogen 4.0H, Urine Leukocyte Esterase NEGATIVE, Urine WBC (Auto) 1, Urine RBC (Auto) 17H, Urine Hyaline Casts (Auto) 0, Urine Bacteria (Auto) NEGATIVE, Urine Squamous Epithelial Cells 1, Urine Sperm (Auto) 10/08/20 05:41: Nucleated Red Blood Cells % (auto) 0.0, Anion Gap 5L, Glomerular Filtration Rate > 60.0, Calcium Level 8.3L, Magnesium Level 1.6L CBC/BMP Laboratory Tests 10/08/20 05:41 Microbiology Microbiology 10/06/20 Stool Occult Blood (KELLI) - Final, Complete 10/03/20 Respiratory Virus Panel (PCR) ([facility]) - Final, Complete Rosa Elena Jauregui MD October 08, 2020 18:35
[2020-10-08] MEDS: SERTRALINE HCL 50 MG TAB PO SCH (20:06)
[2020-10-08 22:00] VITALS: BP 136/63
[2020-10-09] VITALS (7 sets, daily range): BP systolic 114–132; BP diastolic 50–62
[2020-10-09] MEDS ORDERED: MAGNESIUM CITRATE 300 ML BTL PO ONE (06:00)
[2020-10-09 06:40] LABS: BLOOD UREA NITROGEN 13 MG/DL (7-18); CALCIUM LEVEL 7.9 MG/DL (8.8-10.2); CARBON DIOXIDE LEVEL 32 MEQ/L (21-32); CHLORIDE LEVEL 108 MEQ/L (98-107); CREATININE FOR GFR 0.64 MG/DL (0.55-1.30); GLOMERULAR FILTRATION RATE > 60.0 (>32); GLUCOSE, FASTING 82 MG/DL (70-100); MAGNESIUM LEVEL 2.1 MG/DL (1.8-2.4); POTASSIUM SERUM 4.2 MEQ/L (3.5-5.1); SODIUM LEVEL 142 MEQ/L (136-145)
[2020-10-09] MEDS: LEVALBUTEROL 1.25 MG/0.5 ML CONCENTRATE NEB INH SCH ×4 (07:15→20:00)
[2020-10-09] MEDS: SUCRALFATE SUSP 1GM/10ML UD PO SCH ×4 (08:58→20:26)
[2020-10-09] MEDS: DOCUSATE SODIUM 100MG CAPSULE PO SCH ×2 (08:59→20:26)
[2020-10-09] MEDS: ASCORBIC ACID 500 MG TAB PO SCH (08:59)
[2020-10-09] MEDS: POTASSIUM CHLORIDE 10 MEQ SR TABLET PO SCH ×2 (08:59→20:27)
[2020-10-09] MEDS: MAGNESIUM OXIDE 400MG TAB (MAG-OX) PO SCH ×2 (08:59→20:27)
[2020-10-09] MEDS: BISACODYL 5 MG TAB PO SCH (08:59)
[2020-10-09] MEDS: PANTOPRAZOLE 40MG TAB (PROTONIX) PO SCH ×2 (09:00→20:27)
[2020-10-09] MEDS: ATORVASTATIN 20 MG TAB PO SCH (09:00)
[2020-10-09] MEDS: SERTRALINE 100 MG TAB PO SCH (09:00)
[2020-10-09 09:01] LABS: BASO % 0.4 % (0.0-1.0); EOS # 0.4 10^3/uL (0.0-0.5); EOS % 3.4 % (0.0-3.0); HEMATOCRIT 31.9 % (36.0-47.0); HEMOGLOBIN 9.3 g/dl (12.0-15.5); LYMPH # 3.4 10^3/uL (1.5-5.0); LYMPH % 31.9 % (24.0-44.0); MEAN CORPUSCULAR HEMOGLOBIN 25.1 pg (27.0-33.0); MEAN CORPUSCULAR HGB CONC 29.2 g/dl (32.0-36.5); MEAN CORPUSCULAR VOLUME 86.2 fl (80.0-96.0); MONO # 0.8 10^3/uL (0.0-0.8); MONO % 7.9 % (2.0-8.0); NEUTROPHILS % 55.9 % (36.0-66.0); PLATELET COUNT, AUTOMATED 168 10^3/uL (150-450); WHITE BLOOD COUNT 10.6 10^3/uL (4.0-10.0)
[2020-10-09] MEDS ORDERED: propofoL 200 MG/20 ML VIAL As Ordered ONE ×2 (14:33→15:01)
[2020-10-09] MEDS ORDERED: fentaNYL 100 MCG/2 ML INJECTION (J3010) As Ordered ONE (14:33)
[2020-10-09] MEDS ORDERED: LIDOCAINE 2% 100MG/5ML SDV (FOR ANES.) As Ordered ONE (14:33)
--- NOTE | 2020-10-09 14:45 | ROOR ---
Patient Name: Cecy Chang Procedure Date: 10/09/2020 2:30 PM Date of : 1935 Age: 85 Room: [facility] Gender: Female Note Status: Finalized Procedure: Upper GI endoscopy Indications: Iron deficiency anemia Providers: Aram Vargas Jr, MD Referring MD: 2. Inpatient 2. Inpatient, Roderick Heller MD Requesting Provider: Medicines: Propofol per Anesthesia Complications: No immediate complications. Procedure: Pre-Anesthesia Assessment: - Prior to the procedure, a History and Physical was performed, and patient medications and allergies were reviewed. The patient is competent. The risks and benefits of the procedure and the sedation options and risks were discussed with the patient. All questions were answered and informed consent was obtained. Patient identification and proposed procedure were verified by the physician and the nurse in the pre-procedure area and in the procedure room. Mental Status Examination: alert and oriented. Airway Examination: normal oropharyngeal airway and neck mobility. Respiratory Examination: clear to auscultation. CV Examination: normal. ASA Grade Assessment: III - A patient with severe systemic disease. After reviewing the risks and benefits, the patient was deemed in satisfactory condition to undergo the procedure. The anesthesia plan was to use moderate sedation / analgesia (conscious sedation). Immediately prior to administration of medications, the patient was re-assessed for adequacy to receive sedatives. The heart rate, respiratory rate, oxygen saturations, blood pressure, adequacy of pulmonary ventilation, and response to care were monitored throughout the procedure. The physical status of the patient was re-assessed after the procedure. The Endoscope was introduced through the mouth, and advanced to the second part of duodenum. The upper GI endoscopy was accomplished without difficulty. The patient tolerated the procedure well. The patient tolerated the procedure well. Findings: The upper third of the esophagus, middle third of the esophagus and lower third of the esophagus were normal. A small hiatal hernia was present. The cardia, gastric fundus and gastric body were normal. Diffuse moderate inflammation characterized by congestion (edema), erythema and friability was found in the gastric antrum and in the prepyloric region of the stomach. The duodenal bulb, first portion of the duodenum and second portion of the duodenum were normal. Impression: - Normal upper third of esophagus, middle third of esophagus and lower third of esophagus. - Small hiatal hernia. - Normal cardia, gastric fundus and gastric body. - Gastritis. - Normal duodenal bulb, first portion of the duodenum and second portion of the duodenum. - No specimens collected. Recommendation: - Return patient to [facility] for ongoing care. Procedure Code(s): --- Professional --- 82694, Esophagogastroduodenoscopy, flexible, transoral; diagnostic, including collection of specimen(s) by brushing or washing, when performed (separate procedure) Diagnosis Code(s): --- Professional --- K44.9, Diaphragmatic hernia without obstruction or gangrene K29.70, Gastritis, unspecified, without bleeding D50.9, Iron deficiency anemia, unspecified CPT copyright 2019 [employer]. All rights reserved. The codes documented in this report are preliminary and upon physical science technician review may be revised to meet current compliance requirements. Aram Vargas MD Aram Vargas Jr, MD 10/09/2020 2:45:06 PM Electronically signed by Aram Vargas Jr, MD Number of Addenda: 0 Note Initiated On: 10/09/2020 2:30 PM Estimated Blood Loss: Estimated blood loss: none.
--- NOTE | 2020-10-09 14:48 | IPNPDOC ---
Date Seen The patient was seen on 10/09/20. Progress Note SUBJECTIVE: Colonoscopy today planned. H/H stable, No incr s/s of bleeding. Denies abd pain, n/v/d, increased s/s of bleeding. OBJECTIVE: PHYSICAL EXAM: VS: Please see below GENERAL: NAD, sitting up in bed HEENT: AT/NC, no lymphadenopathy Neck: No JVD LUNGS: CTAB, no w/r/r HEART: S1, S2. Sinus rhythm. No m/r/g , +1 pitting edema in lower ext ABDOMEN: Soft, nontender, nondistended. Positive bowel sounds. EXTREMITIES: No cyanosis or clubbing. LABORATORY DATA: Please see below MICRO: UA neg IMAGING: Echocardiogram 10/05/20: 1. Study is of acceptable technical quality, underlying sinus rhythm. 2. Borderline dilated left ventricle with overall preserved contractility and estimated LVEF around 60%. I cannot completely rule out subtle septal wall motion abnormality. Grade 2 diastolic dysfunction. 3. Mildly dilated right ventricle. 4. Trace aortic and mitral insufficiency. 5. Moderate tricuspid insufficiency. 6. High central venous pressure and likely moderately severe pulmonary hypertension (calculated pulmonary artery pressure at minimum 60 mmHg). ASSESSMENT: This is an 85-year-old female PMH of diverticulosis, deep venous thrombosis (DVT), reflux, hyperlipidemia, but denied bright red blood per rectum, black tarry stools prior to coming in to the hospital admitted with new onset congestive heart failure (CHF), symptomatic anemia likely 2/2 to GI bleed. DIAGNOSES: 1. Acute anemia poss 2/2 to suspected gastrointestinal (GI) bleed s/p 2 units of blood on 10/03 and 10/04 2. HFpEF without exacerbation s/p diuresis 3. Acute hypokalemia likely 2/2 to diuresis 4. History of diverticulosis. 5. Hypertension. 6. Gastroesophageal reflux. 7. Depression 8. History of deep venous thrombosis (DVT), not on anticoagulants. 9. Hypomagnesemia, acute PLAN: Colonoscopy 10/09/20, no incr s/s of bleeding. VS stable. MAg wnl this AM after m agnesium supplement BID. per PFS, family can provide 24/7 care and decision is to d/c home with family, HH. Plan is d/c within next 24-48hrs. VS, I&O, 24H, Fishbone Vital Signs/I&O Vital Signs Date Time Temp Pulse Resp B/P (MAP) Pulse Ox O2 Delivery O2 Flow Rate FiO2 10/09/20 06:00 98.1 84 18 132/62 (85) 93 Room Air I&O- Last 24 Hours up to 6 AM 10/09/20 06:00 Intake Total 450 ml Output Total 400 ml Balance 50 ml Laboratory Data 24H LABS Laboratory Tests 2 10/09/20 05:42: Immature Granulocyte % (Auto) 0.5, Neutrophils (%) (Auto) 55.9, Lymphocytes (%) (Auto) 31.9, Monocytes (%) (Auto) 7.9, Eosinophils (%) (Auto) 3.4H, Basophils (%) (Auto) 0.4, Neutrophils # (Auto) 6.0, Lymphocytes # (Auto) 3.4, Monocytes # (Auto) 0.8, Eosinophils # (Auto) 0.4, Basophils # (Auto) 0.0, Nucleated Red Blood Cells % (auto) 0.0, Anion Gap 2L, Glomerular Filtration Rate > 60.0, Calcium Level 7.9L, Magnesium Level 2.1 CBC/BMP Laboratory Tests 10/09/20 05:42 Microbiology Microbiology 10/09/20 Respiratory Virus Panel (PCR) (KELLI) - Final, Complete 10/06/20 Stool Occult Blood (KELLI) - Final, Complete 10/03/20 Respiratory Virus Panel (PCR) (KELLI) - Final, Complete Rosa Elena Jauregui MD October 09, 2020 14:48
--- NOTE | 2020-10-09 15:08 | ROOR ---
Patient Name: Cecy Chang Procedure Date: 10/09/2020 2:31 PM Date of : 1935 Age: 85 Room: [facility] Gender: Female Note Status: Finalized Procedure: Colonoscopy Indications: Iron deficiency anemia Providers: Aram Vargas Jr, MD Referring MD: Roderick Heller MD Requesting Provider: Medicines: Propofol per Anesthesia Complications: No immediate complications. Procedure: Pre-Anesthesia Assessment: - Prior to the procedure, a History and Physical was performed, and patient medications and allergies were reviewed. The patient is competent. The risks and benefits of the procedure and the sedation options and risks were discussed with the patient. All questions were answered and informed consent was obtained. Patient identification and proposed procedure were verified by the physician and the nurse in the pre-procedure area and in the procedure room. Mental Status Examination: alert and oriented. Airway Examination: normal oropharyngeal airway and neck mobility. Respiratory Examination: clear to auscultation. CV Examination: normal. ASA Grade Assessment: III - A patient with severe systemic disease. After reviewing the risks and benefits, the patient was deemed in satisfactory condition to undergo the procedure. The anesthesia plan was to use moderate sedation / analgesia (conscious sedation). Immediately prior to administration of medications, the patient was re-assessed for adequacy to receive sedatives. The heart rate, respiratory rate, oxygen saturations, blood pressure, adequacy of pulmonary ventilation, and response to care were monitored throughout the procedure. The physical status of the patient was re-assessed after the procedure. The Colonoscope was introduced through the anus and advanced to the cecum, identified by appendiceal orifice and ileocecal valve. The colonoscopy was performed without difficulty. The patient tolerated the procedure well. The quality of the bowel preparation was fair. Findings: The rectum, recto-sigmoid colon, sigmoid colon, descending colon, transverse colon, ascending colon, cecum, appendiceal orifice and ileocecal valve appeared normal. Impression: - Preparation of the colon was fair. - The rectum, recto-sigmoid colon, sigmoid colon, descending colon, transverse colon, ascending colon, cecum, appendiceal orifice and ileocecal valve are normal. - No specimens collected. Recommendation: - Return patient to [facility] for ongoing care. - No repeat colonoscopy due to current age (66 years or older). Procedure Code(s): --- Professional --- 90590, Colonoscopy, flexible; diagnostic, including collection of specimen(s) by brushing or washing, when performed (separate procedure) Diagnosis Code(s): --- Professional --- D50.9, Iron deficiency anemia, unspecified CPT copyright 2019 [employer]. All rights reserved. The codes documented in this report are preliminary and upon certified coder review may be revised to meet current compliance requirements. Aram Vargsa MD Aram Vargas Jr, MD 10/09/2020 3:07:56 PM Electronically signed by Aram Vargas Jr, MD Number of Addenda: 0 Note Initiated On: 10/09/2020 2:31 PM Estimated Blood Loss: Estimated blood loss: none.
[2020-10-09] MEDS ORDERED: ASPI81TA26 PO (19:43)
[2020-10-09] MEDS: SERTRALINE HCL 50 MG TAB PO SCH (20:26)
[2020-10-10 02:00] VITALS: BP 106/45
[2020-10-10 06:00] VITALS: BP 107/47
[2020-10-10 06:10] LABS: HEMATOCRIT 31.6 % (36.0-47.0); HEMOGLOBIN 9.4 g/dl (12.0-15.5); MEAN CORPUSCULAR HEMOGLOBIN 25.9 pg (27.0-33.0); MEAN CORPUSCULAR HGB CONC 29.7 g/dl (32.0-36.5); MEAN CORPUSCULAR VOLUME 87.1 fl (80.0-96.0); PLATELET COUNT, AUTOMATED 154 10^3/uL (150-450); RED BLOOD COUNT 3.63 10^6/uL (4.00-5.40); WHITE BLOOD COUNT 10.3 10^3/uL (4.0-10.0)
[2020-10-10] MEDS: LEVALBUTEROL 1.25 MG/0.5 ML CONCENTRATE NEB INH SCH ×2 (07:56→11:23)
[2020-10-10] MEDS: SUCRALFATE SUSP 1GM/10ML UD PO SCH ×2 (08:17→11:44)
[2020-10-10] MEDS: BISACODYL 5 MG TAB PO SCH (08:18)
[2020-10-10] MEDS: POTASSIUM CHLORIDE 10 MEQ SR TABLET PO SCH (08:18)
[2020-10-10] MEDS: ATORVASTATIN 20 MG TAB PO SCH (08:18)
[2020-10-10] MEDS: ASCORBIC ACID 500 MG TAB PO SCH (08:18)
[2020-10-10] MEDS: SERTRALINE 100 MG TAB PO SCH (08:18)
[2020-10-10] MEDS: DOCUSATE SODIUM 100MG CAPSULE PO SCH (08:18)
[2020-10-10] MEDS: PANTOPRAZOLE 40MG TAB (PROTONIX) PO SCH (08:18)
[2020-10-10] MEDS: MAGNESIUM OXIDE 400MG TAB (MAG-OX) PO SCH (08:18)
[2020-10-10] MEDS: ACETAMINOPHEN TAB 650MG DOSE (2X325MG) PO PRN (10:23)
--- NOTE | 2020-10-10 18:40 | DS.PDOC ---
Discharge Summary General Date of Admission October 03, 2020 at 20:38 Date of Discharge 10/10/20 Attending Physician: Rosa Elena Jauregui MD Discharge Summary HISTORY OF PRESENT ILLNESS: This is an 85 y/o female with a pmh of hld, gerd, dvt and diverticulosis who presents to the emergency department after a routine visit to her pcp found a hb of 7. Patient was called by her pcp and told to come to the ed for further evaluation. Repeat cbc performed in our ed showed a hb of 6.8. Patient also noted to be stool heme +. Patient denied abdominal pain, n/v/d/c, dark stools, brbpr, coffee ground emesis. She stated her only complaint is of increased sob and swollen feet over the past two days, worse with activity. Patient states that this is new for her. Patient denies cough, fever, chills, chest pain, syncope. She was admitted for further workup/treatment of CHF exacerbation, questionable GI bleed, symptomatic anemia. HOSPITAL COURSE: Patient was treated for aforementioned diagnoses and had improved CHF symptoms. She received 2 units PRBC and H/H continued to remain stable. Repeat x-ray on 10/06/2020, shows stable cardiomegaly and complete resolution of pulmonary edema. She was evaluated by general surgeon, Dr. Vargas during this admission who, due to requiring blood and heme pos study in ER, decided to do colonoscopy and upper endoscopy on 10/09/20 to r/o GI bleed. No bleeding sources were found. She continued on Carafate and Protonix here which likely helped. Occult blood later neg. Patient remained asymptomatic and by 10/10/20 was stable at hospital discharge. She was discharged home to f/u with PCP closely to monitor CBC's regularly. AT time of discharge, no acute complaints. PAST MEDICAL HISTORY: HLD GERD DVT hx Diverticulosis PAST SURGICAL HISTORY: 1. [Cholecystectomy]. 2. [Hysterectomy]. 3. [Skin graft placement to face and hands]. SOCIAL HISTORY: Tobacco use:[Smoked in her 20s] ETOH: [Denies] Illicit drug use: [Denies] FAMILY HISTORY: CHF, HTN, DM DISCHARGE MEDS: Please see below PHYSICAL EXAM: VS: Please see below GENERAL: NAD, sitting up in bed HEENT: AT/NC, no lymphadenopathy Neck: No JVD LUNGS: CTAB, no w/r/r HEART: S1, S2. Sinus rhythm. No m/r/g , +1 pitting edema in lower ext ABDOMEN: Soft, nontender, nondistended. Positive bowel sounds. EXTREMITIES: No cyanosis or clubbing. LABORATORY DATA: Please see below MICRO: UA neg IMAGING: Echocardiogram 10/05/20: 1. Study is of acceptable technical quality, underlying sinus rhythm. 2. Borderline dilated left ventricle with overall preserved contractility and estimated LVEF around 60%. I cannot completely rule out subtle septal wall motion abnormality. Grade 2 diastolic dysfunction. 3. Mildly dilated right ventricle. 4. Trace aortic and mitral insufficiency. 5. Moderate tricuspid insufficiency. 6. High central venous pressure and likely moderately severe pulmonary hypertension (calculated pulmonary artery pressure at minimum 60 mmHg). ASSESSMENT: This is an 85-year-old female PMH of diverticulosis, deep venous thrombosis (DVT), reflux, hyperlipidemia, but denied bright red blood per rectum, black tarry stools prior to coming in to the hospital admitted with new onset congestive heart failure (CHF), symptomatic anemia likely 2/2 to GI bleed. DIAGNOSES: 1. Acute anemia poss 2/2 to suspected gastrointestinal (GI) bleed s/p 2 units of blood on 10/03 and 10/04- improved 2. HFpEF without exacerbation s/p diuresis- resolved 3. Acute hypokalemia likely 2/2 to diuresis 4. History of diverticulosis. 5. Hypertension. 6. Gastroesophageal reflux. 7. Depression 8. History of deep venous thrombosis (DVT), not on anticoagulants. 9. Hypomagnesemia, acute PLAN/DISPOSITION: Colonoscopy and upper endoscopy done 10/09/20 showed no identifiable bleed. This does not mean a bleed is not occurring intermittently but only that one was not identified this hospital stay with this imaging. She received a total of 2 units of blood this stay and her H/H has remained stable. No incr s/s of bleeding. VS stable. Magnesium remained wnl after magnesium starting supplement BID. She was resumed only on her home ASA EC but other antiplatelet was held. She should follow up with her PCP to follow her CBC closely and see if futher imaging/te sting will be needed down the line to reassess for bleed (i.e. scans, etc, repeat scopes). Family can provide 24/7 care and decision is to d/c home with family, HH. TIME SPENT ON DISCHARGE: 35 minutes. Vital Signs/I&Os Vital Signs Date Time Temp Pulse Resp B/P (MAP) Pulse Ox O2 Delivery O2 Flow Rate FiO2 10/10/20 06:00 97.9 79 20 107/47 (67) 93 Room Air I&O- Last 24 Hours up to 6 AM 10/10/20 06:00 Intake Total 780 ml Output Total 0 ml Balance 780 ml Laboratory Data Labs 24H Laboratory Tests 2 10/10/20 05:52: Nucleated Red Blood Cells % (auto) 0.0, Magnesium Level 2.1 CBC/BMP Laboratory Tests 10/10/20 05:52 Microbiology Microbiology 10/09/20 Respiratory Virus Panel (PCR) ([facility]) - Final, Complete 10/06/20 Stool Occult Blood ([facility]) - Final, Complete 10/03/20 Respiratory Virus Panel (PCR) ([facility]) - Final, Complete Discharge Medications Scheduled Ascorbic Acid (Vitamin C) 500 Mg Tab, 500 MG PO DAILY, (Reported) Aspirin (Aspirin EC) 81 Mg Tablet.dr, 81 MG PO DAILY for pain Atorvastatin Calcium (Atorvastatin Calcium) 20 Mg Tab, 20 MG PO DAILY, (Reported) Ergocalciferol (Vitamin D2) (Vitamin D2) 50,000 Units Cap, 50,000 UNITS PO 1XWK, (Reported) TUESDAY Furosemide (Furosemide) 20 Mg Tablet, 40 MG PO DAILY, (Reported) Pantoprazole Sodium (Protonix) 40 Mg Tablet.dr, 40 MG PO DAILY Raloxifene HCl (Raloxifene HCl) 60 Mg Tablet, 60 MG PO DAILY, (Reported) Sertraline Hcl (Zoloft) 100 Mg Tablet, 100 MG PO DAILY, (Reported) Sertraline Hcl (Zoloft) 50 Mg Tablet, 50 MG PO QHS, (Reported) Sucralfate (Sucralfate) 1 Gm/10 Ml Oral.susp, 1 GM PO ACHS Scheduled PRN Docusate Sodium (Colace) 100 Mg Cap, 100 MG PO DAILY PRN for CONSTIPATION, (Reported) Allergies Coded Allergies: codeine (Verified Adverse Reaction, Unknown, itching, 12/09/19) propoxyphene (Verified Adverse Reaction, Unknown, N/V, 12/09/19) Rosa Elena Jauregui MD October 10, 2020 18:39
== END 2020-10-10 14:54 | disposition home health service (06) | DRG 377 ==
LOC: M ED 17:20 → M ED INP 20:38 → ENRESERV 21:17 → M MSPAV 22:35
PROVIDERS: ADMIT Internal Medicine; ATTEND General Practice
PROC: 30233N1 Transfusion of Nonautologous Red Blood Cells into Peripheral Vein, Percutaneous Approach (ICD-10-PCS; principal; 2020-10-03)
PROC: 0DJD8ZZ Inspection of Lower Intestinal Tract, Via Natural or Artificial Opening Endoscopic (ICD-10-PCS; 2020-10-09)
DX: K92.2 Gastrointestinal hemorrhage, unspecified (principal); I50.31 Acute diastolic (congestive) heart failure; D62 Acute posthemorrhagic anemia; K21.9 Gastro-esophageal reflux disease without esophagitis; K57.30 Diverticulosis of large intestine without perforation or abscess without bleeding; I11.0 Hypertensive heart disease with heart failure; F32.9 Major depressive disorder, single episode, unspecified; E83.42 Hypomagnesemia; Z79.82 Long term (current) use of aspirin; Z79.899 Other long term (current) drug therapy; Z88.5 Allergy status to narcotic agent; Z88.8 Allergy status to other drugs, medicaments and biological substances; Z79.01 Long term (current) use of anticoagulants; E78.5 Hyperlipidemia, unspecified; E87.6 Hypokalemia

== ENCOUNTER → 2020-12-02 | Outpatient (REF) | payer MEDICARE, OTHER ==
[~2020-12-02] MED LIST changes: +ERGO500029 PO; +SUCR1ORA PO; +ZOLO100T PO
== END ==
LOC: M LAB REF 11:06
PROVIDERS: ATTEND Family Medicine
DX: D64.9 Anemia, unspecified (principal); R30.0 Dysuria

== ENCOUNTER → 2021-02-06 | Outpatient (REF) | payer MEDICARE, OTHER ==
[2021-02-06 16:48] LABS: BACTERIA, URINE AUTO NEGATIVE (NEGATIVE); RBC, URINE AUTO 22 /HPF (0-3); SQUAMOUS EPITHELIAL CELL UR AU 2 /HPF (0-6); WBC, URINE AUTO 0 /HPF (0-3)
== END ==
LOC: M LAB REF 16:04
PROVIDERS: ATTEND Family Medicine
DX: N39.0 Urinary tract infection, site not specified (principal)

== ENCOUNTER → 2021-04-04 | Outpatient (CLI) | payer MEDICARE, OTHER ==
--- NOTE | 2021-04-04 14:13 | REP ---
INDICATION: COUGH UNSPECIFIED. COMPARISON: October 06, 2020. TECHNIQUE: Two views.. FINDINGS: Mild cardiomegaly is observed. Cardiothoracic ratio 57.2%. There is no evidence of pleural effusion. Pulmonary vasculature is not increased. Interstitial markings are prominent but this is unchanged. The thoracic aorta is somewhat tortuous. No focal infiltrate is seen. There are clips in right upper quadrant. IMPRESSION: Cardiomegaly. Chronic increased interstitial markings diffusely. No acute infiltrate or pleural effusion seen. <Electronically signed by Rolan Byers > 04/04/21 [id number]
== END ==
LOC: M RAD 13:45
PROVIDERS: ATTEND Registered Nurse
DX: I51.7 Cardiomegaly (principal); R05.9 Cough, unspecified